=== PATIENT | female | born 1960 | race Caucasian/White ===

== ENCOUNTER 2023-09-17 22:32 | Emergency (ER) | payer MEDICARE, MEDICAID ==
[~2023-09-17] VITALS: Ht 149.9 cm; Wt 70.0 kg
[2023-09-17 23:02] VITALS: BP 120/69; O2SAT 97
[2023-09-18 03:59] VITALS: PULSE 68; RESP 18
== END 2023-09-18 04:00 | disposition home or self-care (01) ==
LOC: ER 22:32
DX: M79.644 Pain in right finger(s) (principal)
CPT/HCPCS: 99281

== ENCOUNTER 2024-10-13 18:40 | Inpatient (IN) | payer MEDICARE, MEDICAID ==
[~2024-10-13] VITALS: Ht 157.5 cm; Wt 62.8 kg
[2024-10-13 19:32] LABS: MEAN PLATELET VOLUME 8.5 FL (7.4-10.4); RED CELL DISTRIBUTION WIDTH 14.9 % (11.5-14.5)
[2024-10-13 20:41] LABS: CREATININE 1.24 MG/DL (0.40-0.90); TOTAL CARBON DIOXIDE 24.5 MMOL/L (24-32); eCRCL 36 ML/MIN; eGFR 43 ML/MIN
[2024-10-13 21:39] LABS: UA COLLECTION TYPE CLN CATCH MIDSTREAM
[2024-10-13 21:52] LABS: URINE HCG NEGATIVE (NEG)
[2024-10-13 21:59] LABS: SQUAMOUS EPITHELIAL CELL,UR FEW /LPF (FEW)
--- NOTE | 2024-10-13 22:09 | Physician Documentation ---
History of Present Illness ~ Chief Complaint: Urinary Symptoms Stated Complaint: UTI Time Seen by MD: 21:32 Primary Medical Doctor: DR. ANNA HPI 64-year-old female presents to the ED complaint of burning urination and urinary frequency for the last 2-3 days. Patient is known psychiatric illness along with a type 2 diabetes. This is a poor historian who does not complain of any pain.. However she is acutely hypertensive at this time well over 190 systolic .denies any chest pain or shortness of breath Day of Onset: Oct 13, 2024 Medication Reconciliation Allergies: Coded Allergies: No Known Allergies (Unverified , 10/13/24) Review of Systems All Other Systems at this time: Reviewed and Negative ROS As stated above in the HPI, otherwise all systems are reviewed and negative. Physical Exam Vital Signs: Temperature: 98.7, Source: Temporal, Heart Rate: 104, Respiratory Rate: 16, BP: 187/111, Pulse Oximetry: 98, Weight: 62.800 Oxygen Flow Rate: 0 Physical Exam General: Alert, no apparent distress. Respiratory: Lungs clear, no respiratory distress. Cardiovascular: Regular rate and rhythm, no murmurs. Gastrointestinal: Soft, nontender, nondistended. Bowels sounds present. Neurologic: Oriented x4. Psychiatric: odd affect Skin: Normal color, warm and dry. No edema, no ecchymosis. Progress Results/Orders Results/Orders Orders - DUSTY ENRIQUEZ TOBACCO SAMPLER Ct Abdomen Pelvis (10/13/24 22:30) Page Hospitalist (10/13/24 ) Completed Orders - DUSTY ENRIQUEZ TOBACCO SAMPLER Hydralazine Inj. (Apresoline Inj.) (10/13/24 22:20) Ct Abdomen Pelvis (10/13/24 22:30) Medications Received in ER Medications (Trade) Dose Ordered Sig/Murali Route PRN Reason Start Time Stop Time Status Last Admin Dose Admin (Apresoline inj.) 10 mg ONCE ONCE IV 10/13/24 22:20 10/13/24 22:21 DC 10/13/24 23:06 10 MG Vital Signs 10/13/24 10/13/24 10/13/24 18:58 21:38 23:06 Temp 98.7 Pulse 104 100 Resp 16 B/P (MAP) 187/111 Pulse Ox 98 O2 Flow Rate 0 Laboratory Tests Test 10/13/24 19:05 10/13/24 19:24 Urine Specimen Description Cln catch midstream Urine Color Red Urine Clarity Bloody Urine pH Urine Specific [place] Urine Protein Urine Glucose (UA) Urine Ketones Urine Occult Blood Urine Nitrite Urine Bilirubin Urine Urobilinogen Urine Leukocyte Esterase Urine RBC Tntc Urine WBC 10-20 H Urine Squamous Epithelial Cells Few Urine Bacteria None seen Urine Culture Indicated Indicated Volume Urine Centrifuged 10 ml Urine HCG, Qualitative Negative Urine Comment See note White Blood Count 17.2 H Red Blood Count 4.63 Hemoglobin 13.5 Hematocrit 39.9 Mean Corpuscular Volume 86.0 Mean Corpuscular Hemoglobin 29.2 Mean Corpuscular Hemoglobin Concent 33.9 Red Cell Distribution Width 14.9 H Platelet Count 245 Mean Platelet Volume 8.5 Neutrophils (%) (Auto) 82.5 H Lymphocytes (%) (Auto) 12.4 L Monocytes (%) (Auto) 4.3 Eosinophils (%) (Auto) 0.5 Basophils (%) (Auto) 0.3 Neutrophils # (Auto) 14.2 H Lymphocytes # (Auto) 2.1 Monocytes # (Auto) 0.7 Eosinophils # (Auto) 0.1 Basophils # (Auto) 0.1 CBC Comment Sodium Level 139 Potassium Level 3.7 Chloride Level 102 Carbon Dioxide Level 24.5 Anion Gap 13 Blood Urea Nitrogen 23 H Creatinine 1.24 H Estimated GFR/1.73 m2 43 BUN/Creatinine Ratio 18.5 Glucose Level 287 H Calcium Level 9.0 Total Bilirubin 0.4 Aspartate Amino Transf (AST/SGOT) 26 Alanine Aminotransferase (ALT/SGPT) 34 Alkaline Phosphatase 98 Total Protein 8.9 H Albumin 4.1 Globulin 4.8 H Albumin/Globulin Ratio 0.9 L Lipase 47 Chemistry Comments Microbiology Date/Time Source Procedure Growth Status 10/13/24 22:07 Urine Clean Catch Midstream Urine Culture - Preliminary Culture received. Resulted Medical Decision Making Findings This patient is acutely hypertensive which I am treating with hydralazine in addition she has hematuria with no current supportive evidence of UTI other than hematuria she has not odd affect and is poor historian. Currently going to scan her abdomen to rule out kidney stones. Unexplained hematuria or her acute hypertension at this time. Going to request hospital admission for further evaluation Urinary Diff Dx:Considerations: Include: AAA, , Aortic dissection, Appendicitis, Bowel obstruction, Cholelithiasis, Choleangitis, DJD, Ectopic , Hepatitis, HNP, Impaction, Intrauterine , Musculoskeletal pain, Ovarian torsion, Pancreatitis, PID, Post-Op complication, Pyelonephritis, Renal failure, Strain, Urinary Obstruction, Urolithiasis, Urinary retention, UT I, Vaginitis, Other Departure Disposition: ADMITTED INPATIENT Impression: Primary Impression: Acute urinary tract infection Additional Impressions: Hematuria Hypertension Condition: Stable Referrals: NO PRIMARY CARE PROVIDER (PCP) Signature Scribe Signature: y Attestation: Scribed for Dusty Enriquez Industrial X Ray Operator by Dusty Mike NP . 10/13/24 23:11 DUSTY ENRIQUEZ NP Oct 13, 2024 22:09
[2024-10-13] MEDS ORDERED: HYDROcodone/acetaminophen 5mg/325mg tablet PO PRN (22:55)
[2024-10-13] MEDS ORDERED: potassium Cl 20 mEq SR tablet PO PRN (22:55)
[2024-10-13] MEDS ORDERED: magnesium sulf-water 4G/100mL 100 ML IV PRN (22:55)
[2024-10-13] MEDS ORDERED: magnesium hydroxide 30ml (MOM) UD suspension PO PRN (22:55)
[2024-10-13] MEDS ORDERED: potassium Cl 40MEQ/1/2NS 520ml 520 ML IV PRN (22:55)
[2024-10-13] MEDS ORDERED: magnesium sulf-water 2g/50mL 50 ML IV PRN (22:55)
[2024-10-13] MEDS ORDERED: magnesium Cl slow-release 64mg tablet PO PRN (22:55)
[2024-10-13] MEDS ORDERED: HYDROcodone/acetaminophen 10/325mg tab PO PRN (22:55)
[2024-10-13] MEDS ORDERED: mag hydrox/Alum hydrox/simeth 30ml oral suspension PO PRN (22:55)
[2024-10-13] MEDS: hydrALAZINE 20mg/ml inj. IV ONE (23:06)
--- NOTE | 2024-10-13 23:26 | HISTORY AND PHYSICAL-Residence ---
History & Physical Providers to CC Resident Creating Document: ANNABELLE LINTON, CASSIDY ~ History of Present Illness Primary Medical Doctor: DR. ANNA Reason for Admit\Complaint: UTI History of Present Illness This is a 64-year-old female patient with past medical history of hypertension, dyslipidemia, type 2 diabetes, lung cancer, colon cancer, unknown psychiatric condition who came to the ER with complaints of blood in urine and burning micturition. Patient is a poor historian. She has 2 caregivers Ingrid and Patrick who will be with the patient tomorrow bedside for a detailed history. The patient explained that she noticed blood in the urine associated with burning micturition with increased frequency and urgency since today morning. Not associated with abdominal pain, fever, nausea, vomiting. Allergies: Coded Allergies: No Known Allergies (Unverified , 10/13/24) Past Medical History Past Medical History Hypertension Dyslipidemia Type 2 diabetes Lung cancer Colon cancer Past Surgical History Surgical History Comment hysterectomy in 20s, reason unknown Past Social History Smoking: Non-Smoker Alcohol Use: None Drug Use: None Lives with: Other (Caregivers Ingrid and Patrick) Lives In: Home Occupation: retired ROS All Other Systems: Reviewed and Negative Constitutional: Reports: no symptoms reported Eyes: Reports: no symptoms reported ENT: Reports: no symptoms reported Respiratory: Reports: no symptoms reported Cardiovascular: Reports: no symptoms reported Gastrointestinal: Reports: no symptoms reported Genitourinary: Reports: no symptoms reported, burning, dysuria, hematuria, urgency Female Genitalia: Reports: no reported symptoms Neurological: Reports: no symptoms reported Musculoskeletal: Reports: no symptoms reported Integumentary: Reports: no symptoms reported Allergic/Immunologic: Reports: no symptoms reported Hematologic/Lymphatic: Reports: no symptoms reported Endocrine: Reports: no symptoms reported Psychiatric: Reports: no symptoms reported Unable to obtain: dementia Exam Vitals: Vital Signs Date Time Temp Pulse Resp B/P (MAP) Pulse Ox O2 Delivery O2 Flow Rate FiO2 10/13/24 23:06 100 10/13/24 21:38 10/13/24 18:58 98.7 16 98 0 General: General: Well alert, well oriented, not agitated, not in acute distress, well cooperated during the physical. Patient has an unknown psychiatric condition and is a poor historian. HEENT: Conjunctive are pink, sclerae clear, no icterus, pupil is equal in both sides, reactive to light, no ear discharge, no pharyngeal erythema or an edema. Neck: Supple, no JVD, no lymphadenopathy and thyromegaly. Chest: Equal air entry on both lungs, no added sounds, no wheeze. Cardiovascular: S1-S2 regular sinus rhythm and, regular rate, no gallops, no rubs, no murmurs Abdomen: No visible peristalsis, Bowel sounds present on auscultation, soft, nontender, no guarding, no rigidity Extremities: No obvious deformities, no pitting edema bilaterally, capillary refill intact, peripheral pulsations are intact on both sides Central Nervous System: No focal neurological deficits, no motor or sensory weakness in all 4 extremities, could move all 4 extremities, 2+ deep tendon reflexes, negative Babinski. Musculoskeletal: No joint swelling, deformities, inflammations, and no scoliosis and back tenderness Skin: Warm and dry. Diagnostic Data Last Recorded Lab Results: 10/13/24192310/13/241923 Counseling Services Smoking & Tobacco Cessation: N/A Advance Care Planning Advanced Care plannin - 30 Minutes (Full code) Additional Plan Assessment: This is a 64-year-old female patient with past medical history of hypertension, dyslipidemia, type 2 diabetes, lung cancer, colon cancer, unknown psychiatric condition who came to the ER with complaints of blood in urine and burning micturition. Patient is a poor historian. Plan: UTI Patient meets SIRS criteria (heart rate> 90, WBC> 68441, suspected source of infection) Ordered lactic acid, ESR, CRP, procalcitonin WBC 17.2 Urinalysis shows few bacteria, 10-12 WBC and RBCs Abdominal and pelvis CT:1. Moderate bilateral hydroureteronephrosis without evidence of obstructing urinary stone. Inflammatory appearance of the urinary bladder, with posttreatment appearance of the diminutive uterus or vaginal cuff. Prominent inflammatory stranding within the pelvis and small ascites. Circumferential rectal wall thickening. Constellation of findings suggests inflammation or malignancy, likely with previous treatment. No comparison exams are available for review, and relevant history is unknown. Further clinical workup is recommended. 2. Uncomplicated sigmoid colon anastomotic sutures. 3. Interstitial edema in the lung bases as well as a peripheral left lower lobe consolidation which may be infectious/inflammatory, or suspicious for metastasis given the pelvic findings. Awaited urine culture Plan: Hydration with 50 mL/hour IV fluids Started antibiotic ceftriaxone 1 g IV daily, and probiotic. Hypertension Vitals: Systolic blood pressure on arrival 180s Administered hydralazine 10 mg in the ER , she still continues to have high blood pressure on the floor around 180s Creatinine 1.24, BUN 23, EGFR 43 Baseline creatinine unknown. Order lipid panel, EKG and echo. Plan: We will continue her home medication metoprolol 25 mg p.o. b.i.d., labetalol 10 mg IV p.r.n. for blood pressure greater than 160/100 Medication reconciliation to be done Type 2 diabetes Ordered hemoglobin A1c On mild hyper/hypoglycemia protocol Unknown psychiatric condition To Continue home medication olanzapine 7.5 mg p.o. daily, fluoxetine 20 mg p.o. daily after medicine reconciliation Code status: Full code DVT prophylaxis: SCDs Analgesia/sedation: Morphine/Belt p.r.n. Line/tube: PIV GI prophylaxis: None Nutrition: 75 g carb controlled diet PT: Ordered. Prognosis: Guarded Disposition: Admit to [facility] with telemetry, detailed history were taken from her caregivers tomorrow morning, medicine reconciliation to be done Annabelle Linton MD PGY1, Internal Medicine [facility] Attending Physician Attestation Evaluation via HIPAA compliant A/V device. I discussed the case with the resident and I agree with the resident's documentation. 64-year-old woman with a history of hypertension, dyslipidemia, type 2 diabetes, lung cancer, colon cancer, unknown psychiatric condition now admitted with a urinary tract infection bilateral hydroureteronephrosis. The treatment plan includes ceftriaxone antimicrobial therapy and a Urology evaluation. Time spent 50 minutes. Date of Service: Oct 13, 2024 Billing Provider: MISHEL CHICAS MD, SHIVANI, RES Oct 13, 2024 23:26 MISHEL CHICAS MD Oct 14, 2024 02:59
--- NOTE | 2024-10-13 23:26 | RADIOLOGY REPORT ---
Exam: CT CT ABDOMEN PELVIS History: hematuria COMPARISON: None Technique: Multidetector spiral CT of the abdomen and pelvis was performed from lung bases to pubic s ymphysis. Intravenous contrast was administered during this examination. Portal venous imaging was o btained. Axial, coronal and sagittal multiplanar reformats were performed by the technologist on a [employer] workstation. Radiation Dose : 1. Abdomen/Pelvis: CTDIvol 13 mGy, DLP 6401 mGy*cm. Findings: Lower Chest: Interlobular septal thickening in the lung bases. Pleural-based 3.2 cm consolidation in the left lower lobe. Normal heart size with coronary atherosclerosis. Suboptimal contrast bolus timing and/or lack of contrast limits assessment. Liver: Unremarkable. Gallbladder and Biliary Tree: Unremarkable. Pancreas: Unremarkable. Spleen: Scattered calcifications. Adrenal Glands: Unremarkable Kidneys: Moderate bilateral hydroureteronephrosis. No evidence of collecting system or ureteral sto ne. Mild bilateral renal atrophy and perinephric stranding. Bladder: Circumferential wall thickening. Pericystic stranding. Pelvic Organs: Metallic densities within the diminutive uterus versus vaginal cuff may represent fidu cials. Nonvisualized ovaries. Bowel: The distal esophagus, stomach, duodenum and small bowel are unremarkable. Nonvisualized appe ndix. Moderate proximal colonic stool burden. Uncomplicated sigmoid colon anastomotic suture. Circum ferential rectal wall thickening with surrounding stranding. Vasculature: Diffuse atherosclerosis. Lymphadenopathy: No obvious lymphadenopathy. Peritoneum: Small volume pelvic ascites admixed with stranding described above. No free air or obvio us fluid collection. Abdominal Wall: Ventral postsurgical change. Periumbilical subcutaneous stranding likely related to medication injection. Musculoskeletal: No acute abnormality. Mild degenerative changes. IMPRESSION: 1. Moderate bilateral hydroureteronephrosis without evidence of obstructing urinary stone. Inflammato ry appearance of the urinary bladder, with posttreatment appearance of the diminutive uterus or vagi nal cuff. Prominent inflammatory stranding within the pelvis and small ascites. Circumferential rect al wall thickening. Constellation of findings suggests inflammation or malignancy, likely with previo us treatment. No comparison exams are available for review, and relevant history is unknown. Further clinical workup is recommended. 2. Uncomplicated sigmoid colon anastomotic sutures. 3. Interstitial edema in the lung bases as well as a peripheral left lower lobe consolidation which m ay be infectious/inflammatory, or suspicious for metastasis given the pelvic findings. Radiation optimization: All CT scans at this facility use at least one of these dose optimization shanda hniques: automated exposure control mA and/or kV adjustment per patient size (includes targeted exam s where dose is matched to clinical indication) or iterative reconstruction.
[2024-10-14] VITALS (13 sets, daily range): BP systolic 113–227; BP diastolic 64–140; PULSE 80–115; RESP 14–18; TEMP 97.3–98.5; O2SAT 96–99
[2024-10-14] MEDS ORDERED: glucagon, human recombinant 1mg kit SUBCUT PRN (00:25)
[2024-10-14] MEDS ORDERED: DEXTROSE 15 GM of carb/4 tabs (each vial/BOTTLE has 4 tablets) PO PRN ×2 (00:25)
[2024-10-14] MEDS ORDERED: dextrose 50%-water 50ml dispensing syringe IV PRN ×2 (00:25)
[2024-10-14] MEDS: labetalol 20mg/4ml (5mg/ml) syringe IV ONE (02:04)
[2024-10-14] MEDS: normal saline 1000ml 1,000 ML IV SCH (02:26)
[2024-10-14] MEDS: CefTRIAXone/D5W-Rocephin 1gm 50 ML IV SCH (02:29)
[2024-10-14 06:23] LABS: MEAN PLATELET VOLUME 9.1 FL (7.4-10.4); RED CELL DISTRIBUTION WIDTH 14.8 % (11.5-14.5)
[2024-10-14 07:02] LABS: CREATININE 1.01 MG/DL (0.40-0.90); TOTAL CARBON DIOXIDE 22.1 MMOL/L (24-32); eCRCL 44 ML/MIN; eGFR 55 ML/MIN
--- NOTE | 2024-10-14 07:20 | ELECTROCARDIOGRAPH REPORT ---
[facility] Test Date: 2024-10-14 Test Time: 07:18:36 Pat Name: CHICO THOMAS Department: ORTHO 4S Room: ORTHO [facility] B Gender: F [employer] Engineer: DEWAYNE : 1960 Requested By: ANNABELLE HUFFMAN Order Number: [id number] Reading MD: Dr. ARETHA Fritz Measurements Intervals [place] Rate: 92 P: 72 WY: 151 QRS: 82 QRSD: 89 T: 245 QT: 442 QTc: 547 Interpretive Statements Sinus rhythm Borderline right axis deviation Probable LVH with secondary repol abnrm Repol abnrm, global ischemia, diffuse leads Prolonged QT interval Electronically Signed On 10-14-2024 18:40:[address] ARETHA Fritz Please click the below link to view image of tracing.
[2024-10-14] MEDS: lactobacillus rhamnosus 10,000 MMU CELLS/CAPSULE PO SCH (07:59)
[2024-10-14] MEDS: K and/or MAG REPLACEMENT MC SCH (08:00)
[2024-10-14] MEDS: docusate sod 100mg capsule PO SCH (08:00)
[2024-10-14] MEDS: INSULIN LISPRO 100 UNIT/ML INSULN.PEN MULTI-DOSE SQ SCH ×3 (08:03→22:07)
[2024-10-14] MEDS: potassium Cl 20 mEq SR tablet PO PRN (10:12)
--- NOTE | 2024-10-14 10:44 | PROGRESS NOTE- Residence ---
Progress Note - Resident Providers to CC Resident Creating Document: FLORENCIA PINTO RES ~ Antibiotic Timeout Antibiotic Ordered?: Yes Subjective The patient is poor historian, unable to officially communicate at the moment. The patient's caregiver Patrick ([phone]) and Angela ([phone]) are residing together with the patient and taking care since last 14 months. As per Patrick over the phone, they just have knowledge about that the patient has lung cancer and colon cancer that was treated with surgery and adjuvant systemic chemotherapy without receiving any radiation therapy for which they have been following oncologist in person at [facility] every six months. They have no idea when those cancer and is treatment happened, what kind of psychiatric conditions she has, and any other urological history is including kidney stones and other risk factor exposure for urological malignancy before they started taking care of the patient. Patient is having long-acting insulin 30 units twice daily and sliding scale after meal at home. Objective Vital Signs Date Time Temp Pulse Resp B/P (MAP) Pulse Ox O2 Delivery O2 Flow Rate FiO2 10/14/24 07:59 87 10/14/24 06:56 97.6 14 118/69 (85) 97 Room Air 10/14/24 01:00 0.0 Result Diagram: 10/14/24 0516 10/14/24 0516 Patient was seen at the bedside this morning. Vitals were stable at the moment with temp 97.6 F, CT 87/minute, RR 14/minute, BP 118/69 mm Hg, pulse oximetry 97% on room air. On exam, General: Well alert, well oriented, not confused, not agitated, not in acute distress, well cooperated during the physical. HEENT: Conjunctive are pink, sclerae clear, no icterus, pupil is equal in both sides, reactive to light, no ear discharge, no pharyngeal erythema or an edema, mouth and lips are dry. Neck: Supple, no JVD, no lymphadenopathy and thyromegaly. Lungs:Equal air entry on both lungs, no additional sounds Heart: S1-S2 regular sinus rhythm and, regular rate, no gallops, no rubs, no murmurs Abdomen: Visible midline surgical scar heal well with a primary union, No visible peristalsis, Bowel sounds present on auscultation, soft, nontender, no guarding, no rigidity, no bilateral CVA tenderness Extremities: No obvious deformities, no pitting edema bilaterally, capillary refill intact, able to wiggle toes both sides, peripheral pulsations are intact on both sides FOWL BLOOD TESTER: No focal neurological deficits, no motor and sensory weakness in all 4 extremities, could move all 4 extremities Musculoskeletal: No joint swelling, deformities, inflammations, and no scoliosis and back tenderness Skin: No active skin lesions and rashes Assessment Assessment A 64-year-old female patient with past medical history of hypertension, dyslipidemia, type 2 diabetes, lung cancer, colon cancer s/p sigmoid colon anastomosis, s/p hysterectomy, and unknown psychiatric condition who came to the ER with complaints of blood in urine and burning micturition, and was admitted to the hospital for the non-complicated LUTIs with non-obstructive bilateral moderate hydronephrosis, and possible community acquired pneumonia. Plan Plan hypertension, dyslipidemia, type 2 diabetes, lung cancer, colon cancer s/p sigmoid colon anastomosis, s/p hysterectomy, and unknown psychiatric condition who came to the ER with complaints of blood in urine and burning micturition, and was admitted to the hospital for the non-complicated LUTIs with non- obstructive bilateral moderate hydronephrosis, and possible community acquired pneumonia. # Sepsis on POA- from the below # Non-complicated LUTI/ Gross Hematuria, covering with Broad spectrum ABx # Non-obstructive bilateral moderate hydronephrosis # Neutrophilic leukocytosis-normalized 10/14/2024:-trending down neutrophilic leukocytosis today -UA showed sterile pyuria and other tests indicating UTI including leukocyte esterase and nitrites were not performed because of the mulugeta hematuria, pending urine culture and sensitivity -reordered urine analysis again with urine casts/microscopic -continue broad-spectrum IV antibiotic 1 g daily and added IV Flagyl 500 mg b.i.d. -increase the IV NS rate to 75 mL/hr in the setting of mulugeta hematuria -will obtain more info about her previous malignant hx for the possible recurrence or mets to the CT pelvis finding from [facility] including last 2-3 outpatient visits, recent/latest scans, labs and urinary tests. -urine exfoliative cytology for the possible malignancy in the presence of Gross/ macroscopic hematuria -pt is a non-smoker with unknown previous dye/ chemical occupation exposure 10/13/2024:-normal lactic acid and procalcitonin -CT AP w/ IV Contrast IMPRESSION: 1. Moderate bilateral hydroureteronephrosis without evidence of obstructing urinary stone. Inflammatory appearance of the urinary bladder, with posttreatment appearance of the diminutive uterus or vaginal cuff. Prominent inflammatory stranding within the pelvis and small ascites. Circumferential rectal wall thickening. Constellation of findings suggests inflammation or malignancy, likely with previous treatment. No comparison exams are available for review, and relevant history is unknown. Further clinical workup is recommended. 2. Uncomplicated sigmoid colon anastomotic sutures. 3. Interstitial edema in the lung bases as well as a peripheral left lower lobe consolidation which may be infectious/inflammatory, or suspicious for metastasis given the pelvic findings. # Hypertension # poorly controlled T2DM, HGB A1c 8.4 10/14/2024: Blood pressure is better in shape today -continue metoprolol 25 mg b.i.d., IV labetalol 10 mg PRN -continue monitoring BP and blood glucose -her HGB A1c 8.4 -ordered lipid panel for the possible metabolic syndrome and calculation of ASCVD risk -pending med rec -continue hypo/hyperglycemic protocol with upgraded medium dose sliding scale regimen for better blood glucose control -started SQ glargine 20 units twice daily for better blood glucose control -goal targeted blood glucose shall be ranging between 140-180s during hospitalization. 10/13/2024: Vitals- Systolic blood pressure on arrival 180s Administered hydralazine 10 mg in the ER , she still continues to have high blood pressure on the floor around 180s Order lipid panel, EKG and echo. Plan: We will continue her home medication metoprolol 25 mg p.o. b.i.d., labetalol 10 mg IV p.r.n. for blood pressure greater than 160/100 Medication reconciliation to be done # electrolyte imbalance-mild hypokalemia # elevated creatinine level # apparent hypocalcemia -no baseline creatinine and EGFR levels to be compared -continue daily monitoring renal function tests and rate of declining GFR -replace potassium as needed as per protocol -corrected calcium showed 8.7 with a normal # Unknown Past Psych Hx -Pending med rec to be reviewed including Olanzapine and Fluoxetine Code status: Full code DVT prophylaxis: SCDs and sc heparin 5000 units b.i.d. Analgesia/sedation: Morphine as needed Line/tube: PIV GI prophylaxis: None Nutrition: 75 g carb controlled diet PT: Ordered. Prognosis: Guarded Disposition: Continue medical management including IV antibiotics, monitor urine output, pending labs, to track previous medical records from [facility] [place] including investigation, blood pressure control and PT eval and DC plan. Resident MD attestation: Patient was seen, examined and discussed with attending MD, Dr. Deb PINTO MD Internal Medicine Resident, PGY3 [facility] Date of Service: Oct 14, 2024 Billing Provider: SADIE FRANKS MD Common Visit Codes: [id number] INP/OBS CARE(HIGH) FLORENCIA PINTO RES Oct 14, 2024 10:44 SADIE FRANKS MD Oct 14, 2024 16:51
--- NOTE | 2024-10-14 11:00 | RADIOLOGY REPORT ---
CHEST RADIOGRAPH Indication: Cough Technique: Single frontal view of the chest was obtained Comparison: None FINDINGS: Lines and Tubes: None Lungs: No focal consolidation. Pleura: No effusion. No pneumothorax. Cardiomediastinal contours: Unremarkable Bones: No acute osseous abnormality. IMPRESSION: No acute cardiopulmonary disease.
[2024-10-14] MEDS ORDERED: ERGO500056 PO (12:44)
[2024-10-14] MEDS ORDERED: MULT-1085 PO (12:44)
[2024-10-14] MEDS ORDERED: INSU100V49 SQ (12:44)
[2024-10-14] MEDS ORDERED: MEGE40TA5 PO (12:44)
[2024-10-14] MEDS ORDERED: METO25TA6 PO ×2 (12:44→12:52)
[2024-10-14] MEDS ORDERED: OLAN7.5T50 PO (12:44)
[2024-10-14] MEDS ORDERED: DAPA10TA PO (12:44)
[2024-10-14] MEDS ORDERED: FLUO-167 PO (12:44)
[2024-10-14] MEDS ORDERED: INSU100I31 SQ (12:44)
[2024-10-14] MEDS ORDERED: SIMV-42 PO (12:44)
[2024-10-14] MEDS ORDERED: TAMO20TA4 PO (12:44)
[2024-10-14] MEDS: metroNIDAZOLE-Flagyl 500mg/NS 100 ML IV SCH (13:25)
[2024-10-14] MEDS ORDERED: INSULIN LISPRO 100 UNIT/ML INSULN.PEN MULTI-DOSE SQ SCH (17:00)
[2024-10-14] MEDS: ergocalciferol (vit D2) capsule 50,000 UNITS (1,250mcg) CAPSULE PO SCH (18:20)
[2024-10-14 19:55] LABS: UA COLLECTION TYPE URINAL
[2024-10-14] MEDS ORDERED: non-formulary drug (Metoprolol Tartrate 1 TAB) PO SCH (20:00)
[2024-10-14 20:01] LABS: SQUAMOUS EPITHELIAL CELL,UR FEW /LPF (FEW)
[2024-10-14] MEDS: ondansetron/PF 4mg/2ml inj IV PRN (21:15)
[2024-10-14] MEDS: heparin, porcine 5000 units/ml vial SQ SCH (21:55)
[2024-10-14] MEDS: insulin glargine (Lantus) pen - multi-dose SQ SCH (21:57)
[2024-10-15] MEDS: labetalol 20mg/4ml (5mg/ml) syringe IV PRN (00:12)
[2024-10-15] MEDS: INSULIN LISPRO 100 UNIT/ML INSULN.PEN MULTI-DOSE SQ ONE (00:26)
[2024-10-15 01:13] VITALS: BP 113/65; PULSE 88; RESP 14; TEMP 99.2; O2SAT 92
[2024-10-15 05:00] VITALS: BP 105/66; PULSE 80; RESP 15; TEMP 98.2; O2SAT 95
[2024-10-15 05:34] LABS: MEAN PLATELET VOLUME 8.7 FL (7.4-10.4); RED CELL DISTRIBUTION WIDTH 15.0 % (11.5-14.5)
[2024-10-15 06:09] LABS: CHOL/HDL RATIO 4.8 (0.00-4.99); CREATININE 1.26 MG/DL (0.40-0.90); LDL CHOLESTEROL 123 MG/DL (50-100); PRO BRAIN NATRIURETIC PEPTIDE 9254 PG/ML (0-125); TOTAL CARBON DIOXIDE 21.5 MMOL/L (24-32); eCRCL 35 ML/MIN; eGFR 43 ML/MIN
[2024-10-15] MEDS: TAMOXIFEN 20 MG PO SCH (08:00)
[2024-10-15 08:19] LABS: OSMOLALITY 299 MOSM/K (280-300)
[2024-10-15] MEDS: multivitamins, therapeutics tablet PO SCH (08:25)
[2024-10-15] MEDS: EMPAGLIFLOZIN 25 MG TABLET PO SCH (08:25)
[2024-10-15] MEDS ORDERED: INSULIN LISPRO 100 UNIT/ML INSULN.PEN MULTI-DOSE SQ SCH (09:00)
[2024-10-15 10:00] VITALS: BP 108/60; PULSE 76; RESP 15; TEMP 97.2; O2SAT 97
[2024-10-15] MEDS ORDERED: AMOX-115 PO (12:30)
[2024-10-15] MEDS ORDERED: LACT1CAP26 PO (12:30)
--- NOTE | 2024-10-15 15:29 | DISCHARGE SUMMARY-Residence ---
Discharge Summary Providers to CC Resident Creating Document: AGUILA FIERRO, RES ~ Discharge Summary Admission Diagnosis: UTI Hospital Course DATE OF ADMISSION: 10/13/2024 DATE OF DISCHARGE: 10/15/2024 Discharge Diagnosis\Comment: # Sepsis on POA- from the below # Non-complicated LUTI/ Gross Hematuria, covering with Broad spectrum ABx # Non-obstructive bilateral moderate hydronephrosis # Neutrophilic leukocytosis-normalized # Hypertension # poorly controlled T2DM, HGB A1c 8.4 # electrolyte imbalance- mild hypokalemia # acute kidney injury, ATN # apparent hypocalcemia # Unknown Past Psych Hx Operations\Procedures: None Consultants: None Complications: None Condition on DC: Stable New Medications: Amox Tr/Potassium Clavulanate (Augmentin 500-125 Tablet) 1 Each Tablet 1 TAB PO Q12H for 7 Days, #14 TAB Lactobacillus Rhamnosus (Culturelle) 10 Billion Cell Capsule 1 CAP PO DAILY for 30 Days, #30 CAP 0 Refills Continued Medications: Dapagliflozin Propanediol (Farxiga) 10 Mg Tablet 1 TAB PO QAM Ergocalciferol (Vitamin D2) (Vitamin D2) 1,250 Mcg (06615 Unit) Capsule 1 CAP PO Q7D Fluoxetine HCl (Fluoxetine HCl) 20 Mg Capsule 1 CAP PO DAILY Insulin Glargine,Hum.rec.anlog (Basaglar Kwikpen U-100) 100 Unit/Ml (3 Ml) Insuln.pen 32 UNITS SQ BID Insulin Lispro (Insulin Lispro) 100 Unit/Ml Vial UNITS SQ Metoprolol Tartrate (Metoprolol Tartrate) 25 Mg Tablet 1 TAB PO Q12H, TAB 0 Refills Multivitamin (Multi Vitamin Daily) 1 Each Tablet 1 TAB PO DAILY, TAB 0 Refills Olanzapine (Olanzapine) 7.5 Mg Tablet 1 TAB PO HS Simvastatin* (Zocor*) 20 Mg Tablet 1 TAB PO HS Tamoxifen Citrate (Tamoxifen Citrate) 20 Mg Tablet 1 TAB PO DAILY, TAB 0 Refills Discharge Summary: HPI as per admitting physician: This is a 64-year-old female patient with past medical history of hypertension, dyslipidemia, type 2 diabetes, lung cancer, colon cancer, unknown psychiatric condition who came to the ER with complaints of blood in urine and burning micturition. Patient is a poor historian. She has 2 caregivers Ingrid and Patrick who will be with the patient tomorrow bedside for a detailed history. The patient explained that she noticed blood in the urine associated with burning micturition with increased frequency and urgency s ricki today morning. Not associated with abdominal pain, fever, nausea, vomiting. Hospital course: The patient is a 64-year-old female with a past medical history significant for hypertension, dyslipidemia, type 2 diabetes mellitus, prior lung and colon cancers, endometrial carcinoma status post hysterectomy and sigmoid colon anastomosis, as well as an unknown psychiatric condition. She presented to the emergency department with complaints of mulugeta hematuria, dysuria, urinary urgency, and frequency. She denied fever, abdominal pain, nausea, or vomiting. On arrival, her systolic blood pressure was in the 180s, and she was found to be hyperglycemic with an HbA1c of 8.4%. She is a poor historian, and further collateral history was planned with her caregivers. Initial evaluation revealed gross hematuria with sterile pyuria on urinalysis. Due to the presence of blood, leukocyte esterase and nitrite testing were not reliable, and urine culture and cytology were sent. A CT abdomen/pelvis with IV contrast demonstrated moderate bilateral hydroureteronephrosis without obstructing calculi, inflammatory changes of the bladder, small volume ascites, circumferential rectal wall thickening, and post-surgical changes consistent with prior hysterectomy and sigmoid anastomosis. The findings raised concern for possible malignancy or post-treatment inflammatory changes. Additional imaging also revealed interstitial edema with peripheral left lower lobe consolidation, raising the possibility of community-acquired pneumonia. She was started empirically on broad-spectrum intravenous antibiotics (initially ceftriaxone, later transitioned to ceftriaxone plus IV metronidazole for broader intra-abdominal coverage) in the setting of sepsis on presentation, with neut rophilic leukocytosis that trended down by hospital day 2. IV fluids were administered with cautious hydration, and urine output was closely monitored. Electrolyte disturbances, including mild hypokalemia and apparent hypocalcemia, were corrected per protocol. Her renal function showed elevated creatinine without known baseline, and she was monitored for possible acute kidney injury on chronic kidney disease. Her blood pressure remained elevated initially, requiring IV hydralazine and labetalol, in addition to continuation of her home metoprolol. Over the course of hospitalization, blood pressure gradually improved. Her diabetes was managed with basal insulin (glargine 20 units BID) and medium-dose sliding scale coverage, with a goal glucose target of 298453 mg/dL. Lipid panel and echocardiogram were ordered as part of her cardiovascular risk evaluation. Given her history of multiple malignancies and the new pelvic and rectal wall findings, further outpatient oncologic evaluation was deemed necessary. Records from [facility] were requested to clarify prior staging and recent treatment history, as she was previously followed there for endometrial carcinoma with known pulmonary metastases. Her leukocytosis resolved, hemodynamics stabilized, and hematuria improved with supportive management and antibiotics. She was transitioned to oral Augmentin at the time of discharge. Plans were made for close outpatient follow-up with her primary oncologist and urology at [facility] for further workup of suspected malignancy, including evaluation of pelvic findings, bladder inflammation, and recurrent hematuria. She was discharged in stable condition with arrangements for her caregivers to accompany her to outpatient visits, with home medications reconciled and resumed as appropriate. Patient did not experience further complications throughout the entire hospital stay. Patient was seen and examined on the day of discharge. All labs, diagnostic workups, discharge plan discussed with patient in details during visit before discharge. All questions and concerns answered to the best of my professional knowledge. Imaging: CT abdomen/pelvis: IMPRESSION: 1. Moderate bilateral hydroureteronephrosis without evidence of obstructing urinary stone. Inflammatory appearance of the urinary bladder, with posttreatment appearance of the diminutive uterus or vaginal cuff. Prominent inflammatory stranding within the pelvis and small ascites. Circumferential rectal wall thickening. Constellation of findings suggests inflammation or malignancy, likely with previous treatment. No comparison exams are available for review, and relevant history is unknown. Further clinical workup is recommended. 2. Uncomplicated sigmoid colon anastomotic sutures. 3. Interstitial edema in the lung bases as well as a peripheral left lower lobe consolidation which may be infectious/inflammatory, or suspicious for metastasis given the pelvic findings. Chest x-ray: No acute cardiopulmonary process Physical examination today: General: Well alert, well oriented, not confused, not agitated, not in acute distress, well cooperated during the physical. HEENT: Conjunctive are pink, sclerae clear, no icterus, pupil is equal in both sides, reactive to light, no ear discharge, no pharyngeal erythema or an edema, mouth and lips are dry. Neck: Supple, no JVD, no lymphadenopathy and thyromegaly. Lungs:Equal air entry on both lungs, no additional sounds Heart: S1-S2 regular sinus rhythm and, regular rate, no gallops, no rubs, no murmurs Abdomen: Visible midline surgical scar heal well with a primary union, No visible peristalsis, Bowel sounds present on auscultation, soft, nontender, no guarding, no rigidity, no bilateral CVA tenderness Extremities: No obvious deformities, no pitting edema bilaterally, capillary refill intact, able to wiggle toes both sides, peripheral pulsations are intact on both sides CODING FILE CLERK: No focal neurological deficits, no motor and sensory weakness in all 4 extremities, could move all 4 extremities Musculoskeletal: No joint swelling, deformities, inflammations, and no scoliosis and back tenderness Skin: No active skin lesions and rashes Laboratory Tests Test 10/13/24 19:05 10/13/24 19:24 10/14/24 02:20 10/14/24 05:16 Urine Specimen Description Cln catch midstream Urine Color Red Urine Clarity Bloody Urine pH Urine Specific [place] Urine Protein mg/dl Urine Glucose (UA) mg/dl Urine Ketones mg/dl Urine Occult Blood Urine Nitrite Urine Bilirubin Urine Urobilinogen E.U/dL Urine Leukocyte Esterase Urine RBC Tntc /HPF Urine WBC 10-20 /HPF Urine Squamous Epithelial Cells Few /LPF Urine Bacteria None seen /HPF Urine Culture Indicated Indicated Volume Urine Centrifuged 10 ml Urine HCG, Qualitative Negative Urine Comment See note White Blood Count 17.2 X10'3 9.7 X10'3 Red Blood Count 4.63 X10'6 4.24 X10'6 Hemoglobin 13.5 g/dl 12.4 g/dl Hematocrit 39.9 % 36.5 % Mean Corpuscular Volume 86.0 FL 86.1 FL Mean Corpuscular Hemoglobin 29.2 PG 29.3 PG Mean Corpuscular Hemoglobin Concent 33.9 g/dL 34.0 g/dL Red Cell Distribution Width 14.9 % 14.8 % Platelet Count 245 X10'3 230 X10'3 Mean Platelet Volume 8.5 FL 9.1 FL Neutrophils (%) (Auto) 82.5 % 74.8 % Lymphocytes (%) (Auto) 12.4 % 18.4 % Monocytes (%) (Auto) 4.3 % 5.6 % Eosinophils (%) (Auto) 0.5 % 0.8 % Basophils (%) (Auto) 0.3 % 0.4 % Neutrophils # (Auto) 14.2 X10'3 7.2 X10'3 Lymphocytes # (Auto) 2.1 X10'3 1.8 X10'3 Monocytes # (Auto) 0.7 X10'3 0.5 X10'3 Eosinophils # (Auto) 0.1 X10'3 0.1 X10'3 Basophils # (Auto) 0.1 X10'3 0.0 X10'3 CBC Comment Sodium Level 139 MMOL/L 136 MMOL/L Potassium Level 3.7 MMOL/L 3.4 MMOL/L Chloride Level 102 MMOL/L 103 MMOL/L Carbon Dioxide Level 24.5 MMOL/L 22.1 MMOL/L Anion Gap 13 11 Blood Urea Nitrogen 23 MG/DL 16 MG/DL Creatinine 1.24 MG/DL 1.01 MG/DL Estimated GFR/1.73 m2 43 ML/MIN 55 ML/MIN BUN/Creatinine Ratio 18.5 15.8 Glucose Level 287 MG/DL 239 MG/DL Calcium Level 9.0 MG/DL 8.3 MG/DL Total Bilirubin 0.4 MG/DL 0.5 MG/DL Aspartate Amino Transf (AST/SGOT) 26 U/L 26 U/L Alanine Aminotransferase (ALT/SGPT) 34 U/L 29 U/L Alkaline Phosphatase 98 IU/L 78 IU/L Total Protein 8.9 G/DL 7.8 G/DL Albumin 4.1 G/DL 3.5 G/DL Globulin 4.8 G/DL 4.3 G/DL Albumin/Globulin Ratio 0.9 0.8 Lipase 47 U/L Chemistry Comments Lactic Acid Level 1.7 MMOL/L Erythrocyte Sedimentation Rate 23 MM/HR Hemoglobin A1c 8.4 % Magnesium Level 1.9 MG/DL C-Reactive Protein 0.57 MG/DL Procalcitonin < 0.05 NG/ML Test 10/14/24 07:12 10/14/24 12:19 10/14/24 17:35 10/14/24 19:40 Glucometer 215 mg/dl 305 mg/dl 299 mg/dl Urine Specimen Description Urinal Urine Color Red Urine Clarity Cloudy Urine pH Urine Specific [place] Urine Protein mg/dl Urine Glucose (UA) mg/dl Urine Ketones mg/dl Urine Occult Blood Urine Nitrite Urine Bilirubin Urine Urobilinogen E.U/dL Urine Leukocyte Esterase Urine RBC Tntc /HPF Urine WBC 5-10 /HPF Urine Squamous Epithelial Cells Few /LPF Urine Bacteria None seen /HPF Volume Urine Centrifuged 10 ml Urine Comment Test 10/14/24 21:28 10/14/24 23:45 10/15/24 00:16 10/15/24 02:23 Glucometer 423 mg/dl 403 mg/dl 398 mg/dl 348 mg/dl Test 10/15/24 04:53 10/15/24 05:52 10/15/24 08:34 10/15/24 11:39 White Blood Count 10.2 X10'3 Red Blood Count 4.13 X10'6 Hemoglobin 12.1 g/dl Hematocrit 35.5 % Mean Corpuscular Volume 86.1 FL Mean Corpuscular Hemoglobin 29.2 PG Mean Corpuscular Hemoglobin Concent 34.0 g/dL Red Cell Distribution Width 15.0 % Platelet Count 228 X10'3 Mean Platelet Volume 8.7 FL Neutrophils (%) (Auto) 71.0 % Lymphocytes (%) (Auto) 22.1 % Monocytes (%) (Auto) 6.1 % Eosinophils (%) (Auto) 0.3 % Basophils (%) (Auto) 0.5 % Neutrophils # (Auto) 7.3 X10'3 Lymphocytes # (Auto) 2.3 X10'3 Monocytes # (Auto) 0.6 X10'3 Eosinophils # (Auto) 0.0 X10'3 Basophils # (Auto) 0.0 X10'3 CBC Comment Sodium Level 138 MMOL/L Potassium Level 4.2 MMOL/L Chloride Level 106 MMOL/L Carbon Dioxide Level 21.5 MMOL/L Anion Gap 11 Blood Urea Nitrogen 28 MG/DL Creatinine 1.26 MG/DL Estimated GFR/1.73 m2 43 ML/MIN BUN/Creatinine Ratio 22.2 Glucose Level 261 MG/DL Osmolality 299 MOSM/K Calcium Level 9.1 MG/DL Magnesium Level 2.1 MG/DL Total Bilirubin 0.3 MG/DL Aspartate Amino Transf (AST/SGOT) 21 U/L Alanine Aminotransferase (ALT/SGPT) 28 U/L Alkaline Phosphatase 82 IU/L Pro-B-Type Natriuretic Peptide 9254 PG/ML Total Protein 7.4 G/DL Albumin 3.3 G/DL Globulin 4.1 G/DL Albumin/Globulin Ratio 0.8 Triglycerides Level 164 MG/DL Cholesterol Level 191 MG/DL LDL Cholesterol 123 MG/DL HDL Cholesterol 40 MG/DL Cholesterol/HDL Ratio 4.8 Chemistry Comments Glucometer 209 mg/dl 292 mg/dl 220 mg/dl Advise on discharge: - please follow up with Oncology at [facility] for further management. 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, so please follow up with the [facility] Oncology as soon as possible for further evaluation and management - continue antibiotics for urinary tract infection as prescribed - hydrate regularly - follow up with PCP in 1 week with a repeat labs and urinalysis - call 911/go to the nearby ED if any emergencies *Problems/Diagnosis: (1) Hematuria Status: Acute (2) Acute urinary tract infection Status: Acute Total Time Spent on D/C: > 30 Minutes Date of Service: Oct 15, 2024 Billing Provider: CHAUNCEY MORSE MD Common Visit Codes: 34965-PYI/OBS DISCH DAY >30min AGUILA FIERRO, RES Oct 15, 2024 15:26 CHAUNCEY MORSE MD Oct 16, 2024 07:50
== END 2024-10-15 14:50 | disposition home health service (06) | DRG 871 ==
LOC: ER 18:40 → ED HOLD 22:58 → EDBEDREQ 10-14 00:05 → ORTHO 4S 10-14 00:50
PROVIDERS: ADMIT Internal Medicine Critical Care Medicine; ATTEND Internal Medicine
PROC: BW211ZZ Computerized Tomography (CT Scan) of Abdomen and Pelvis using Low Osmolar Contrast (ICD-10-PCS; principal; 2024-10-13)
DX: A41.9 Sepsis, unspecified organism (principal); N17.0 Acute kidney failure with tubular necrosis; N13.6 Pyonephrosis; E83.51 Hypocalcemia; E11.65 Type 2 diabetes mellitus with hyperglycemia; I10 Essential (primary) hypertension; E87.6 Hypokalemia; R31.0 Gross hematuria; Z90.710 Acquired absence of both cervix and uterus
CPT/HCPCS: 36415; 71045; 74176; 80053; 80061; 81001; 81025; 82948; 83036; 83605; 83690; 83735; 83880; 83930; 84145; 85025; 85651; 86140; 87040; 87081; 87088; 93005; 97161; 97530; 99285; G0378; J0360; J0696; J1644; J1815; J2405; J3490; J7030

== ENCOUNTER 2025-01-09 17:54 | Inpatient (IN) | payer MEDICARE, MEDICAID ==
[~2025-01-09] VITALS: Ht 162.6 cm; Wt 65.0 kg
[~2025-01-09 17:54] MED LIST: ASPI-1071 PO; ATOR-429 PO; DAPA10TA PO; ERGO500056 PO; FLUO-167 PO; INSU100V49 SQ; LACT1CAP26 PO; LANTUS SQ; METO25TA6 PO; MULT-1085 PO; NITR0.4T51 SL; OLAN7.5T50 PO; TAMO20TA4 PO
--- NOTE | 2025-01-09 18:17 | Physician Documentation ---
History of Present Illness ~ Chief Complaint: Hyperglycemia Stated Complaint: HYPOGLYCEMIA Time Seen by MD: 18:10 Primary Medical Doctor: DR. ANNA Mode of Arrival: EMS HPI Patient presents to the emergency room with chief complaint of hyperglycemia. She reports that she was at a potluck after hoahaoism today and had some additional foods. She denies any fever cough cold congestion symptoms abdominal pain or dysuria. Medication Reconciliation Allergies: Coded Allergies: No Known Allergies (Unverified , 12/12/24) Scheduled Aspirin (Ecotrin*), 1 TAB PO DAILY Atorvastatin Calcium* (Lipitor*), 1 TABLET PO HS Dapagliflozin Propanediol (Farxiga), 1 TAB PO QAM, (Reported) Ergocalciferol (Vitamin D2) (Vitamin D2), 1 CAP PO Q7D, (Reported) Fluoxetine HCl (Fluoxetine HCl), 1 CAP PO DAILY, (Reported) Insulin Glargine,Hum.rec.anlog* (Lantus*), 30 UNIT SQ HS Lactobacillus Rhamnosus (Culturelle), 1 CAP PO DAILY Metoprolol Tartrate (Metoprolol Tartrate), 1 TAB PO Q12H, (Reported) Multivitamin (Multi Vitamin Daily), 1 TAB PO DAILY, (Reported) Olanzapine (Olanzapine), 1 TAB PO HS, (Reported) Tamoxifen Citrate (Tamoxifen Citrate), 1 TAB PO DAILY, (Reported) Scheduled PRN Nitroglycerin SL* (Nitrostat SL*), 1 TAB SL Q5MIN PRN for Chest pain Q5min PRNx3-call MD Miscellaneous Medications Insulin Lispro (Insulin Lispro), UNITS SQ, (Reported) Past Medical History Alcohol Use: None Drug Use: none Lives with: Other Lives In: Home Occupation: retired Review of Systems ROS All review of systems negative except as per HPI Physical Exam Vital Signs: Temperature: 97.5, Source: Oral, Heart Rate: 94, Respiratory Rate: 16, BP: 203/116, Pulse Oximetry: 95, Weight: 65.000 Oxygen Flow Rate: 0 Physical Exam General: Patient is awake, alert, oriented x4 in no acute distress Head: Normocephalic and atraumatic. Eyes: Conjunctival normal. EOMI. PERRL. ENT: Mucous membranes moist. Neck: Supple, trachea is midline. Chest: Clear to auscultation bilaterally without rales, rhonchi, or wheezes. There is no accessory muscle use or retractions. Cardiac: RRR without murmurs, gallops, or rubs. Abd: Soft, nondistended, nontender, with normoactive bowel sounds. No guarding, rebound, or rigidity. Progress Results/Orders Results/Orders Orders - BIJU BASS MD Chest,Single View (01/09/25 18:25) Page Hospitalist (01/09/25 21:) Fill Out Med Reconciliation (01/09/25 21:) Cbc/Diff (01/09/25 21:) Heparin 25,000 Unit/250ml Bag (Heparin 2 (01/09/25 21:05) Heparin 10,000 Unit/Ml 1ml (Heparin 10,0 (01/09/25 21:05) Cbc/Diff (01/10/25 03:00) Cbc/Diff (01/11/25 03:00) Cbc/Diff (01/12/25 03:00) Cbc/Diff (01/13/25 03:00) Cbc/Diff (01/14/25 03:00) Completed Orders - BIJU BASS MD Cbc/Diff (01/09/25 18:12) BMP (01/09/25 18:12) Normal Saline 1000ml (0.9% Sodium Chlori (01/09/25 18:15) Procalcitonin (01/09/25 18:12) Hs Troponin I W Calculations (01/09/25 18:14) Chest,Single View (01/09/25 18:25) PBNP (01/09/25 18:09) Ua W/Microscopic, Cult If Ind (01/09/25 18:32) Insulin Regular, Human (Humulin R 10 Uni (01/09/25 18:45) Normal Saline 1000ml (0.9% Sodium Chlori (01/09/25 18:45) Hs Troponin I W Calculations (01/09/25 19:25) Hydralazine Inj. (Apresoline Inj.) (01/09/25 19:40) Pt Inr (01/09/25 21:01) PTT (01/09/25 21:01) Furosemide 40mg Inj (Lasix Inj) (01/09/25 21:10) Heparin 10,000 Unit/Ml 1ml (Heparin 10,0 (01/09/25 21:20) Heparin 10,000 Unit/Ml 1ml (Heparin 10,0 (01/09/25 21:20) Electrocardiogram (01/09/25 21:23) Message To Nursing (01/09/25 21:25) Medications Received in ER Medications (Trade) Dose Ordered Sig/Murali Route PRN Reason Start Time Stop Time Status Last Admin Dose Admin Sodium Chloride 1,000 ml @ 1,000 mls/hr ONCE ONCE IV 01/09/25 18:15 01/09/25 19:14 DC 01/09/25 18:56 1,000 MLS/HR (HumuLIN R 10 units per 0.1 ML syringe) 10 units ONCE ONCE IV 01/09/25 18:45 01/09/25 18:46 DC 01/09/25 18:57 10 UNITS Sodium Chloride 1,000 ml @ 1,000 mls/hr ONCE ONCE IV 01/09/25 18:45 01/09/25 19:44 DC 01/09/25 18:56 1,000 MLS/HR (Apresoline inj.) 10 mg ONCE ONCE IV 01/09/25 19:40 01/09/25 19:41 DC 01/09/25 19:45 10 MG Heparin Sodium/ Dextrose 250 ml @ 8 mls/hr [id number] PRN IV TO MAINTAIN PTT WITHIN RANGE 01/09/25 21:05 01/09/25 21:33 8 MLS/HR (Lasix inj) 40 mg ONCE ONCE IV 01/09/25 21:10 01/09/25 21:11 DC 01/09/25 21:40 40 MG (heparin 10,000 unit/ml 1ml inj) 3,900 units ONCE ONCE IV 01/09/25 21:20 01/09/25 21:21 DC 01/09/25 21:32 3,900 UNITS Vital Signs 01/09/25 01/09/25 01/09/25 01/09/25 17:58 18:13 18:17 19:45 Temp 97.5 Pulse 94 98 102 Resp 16 16 16 B/P (MAP) 203/116 203/121 (148) Pulse Ox 95 95 O2 Flow Rate 0 1.0 Laboratory Tests Test 01/09/25 18:06 01/09/25 18:09 01/09/25 18:32 01/09/25 19:43 Glucometer 412 *H White Blood Count 13.7 H Red Blood Count 4.66 Hemoglobin 12.8 Hematocrit 38.6 Mean Corpuscular Volume 82.9 Mean Corpuscular Hemoglobin 27.5 Mean Corpuscular Hemoglobin Concent 33.2 Red Cell Distribution Width 14.9 H Platelet Count 222 Mean Platelet Volume 9.4 Neutrophils (%) (Auto) 83.8 H Lymphocytes (%) (Auto) 12.0 L Monocytes (%) (Auto) 3.2 Eosinophils (%) (Auto) 0.3 Basophils (%) (Auto) 0.7 Neutrophils # (Auto) 11.5 H Lymphocytes # (Auto) 1.6 Monocytes # (Auto) 0.4 Eosinophils # (Auto) 0.0 Basophils # (Auto) 0.1 CBC Comment Prothrombin Time 10.6 INR International Normalized Ratio 1.0 Activated Partial Thromboplast Time 25 Coagulation Comments Sodium Level 139 Potassium Level 4.4 Chloride Level 106 Carbon Dioxide Level 18.6 L Anion Gap 14 Blood Urea Nitrogen 32 H Creatinine 1.64 H Estimated GFR/1.73 m2 31 BUN/Creatinine Ratio 19.5 Glucose Level 421 *H Calcium Level 8.7 Troponin I High Sensitivity 154 *H 567 *H Pro-B-Type Natriuretic Peptide 1201 H Albumin 3.7 Procalcitonin < 0.05 Chemistry Comments Urine Specimen Description Cln catch midstream Urine Color Yellow Urine Clarity Clear Urine pH 5.5 Urine Specific [place] 1.020 Urine Protein 100 H Urine Glucose (UA) >=1000 H Urine Ketones Negative Urine Occult Blood Small Urine Nitrite Negative Urine Bilirubin Negative Urine Urobilinogen 0.2 Urine Leukocyte Esterase Negative Urine RBC 20-50 Urine WBC 0-4 Urine Squamous Epithelial Cells Few Urine Bacteria Few Urine Culture Indicated Not ind Volume Urine Centrifuged 10 ml Urine Comment Troponin I High Sens Percent Delta 268 Troponin I Hi Sens Absolute Change 413 Test 01/09/25 20:03 Glucometer 314 H EKG/XRAY/CT/US/VASC/MRI EKG : Additional Comment EKG interpreted by myself shows time of 03/08/2028, rate 108, sinus tachycardia, normal axis, mild diffuse ST-T depression. Medical Decision Making Additional information obtaine: old records Findings Patient presents to the emergency room for evaluation of hyperglycemia. Differentials include but are not limited to infectious process, diabetic ketoacidosis, hyperosmotic state, medication noncompliance therefore emergent labs ordered. Patient is not in DKA. While attempting to treat patient's hyperglycemia patient has developed heart failure. Lasix initiated. Sugars improved. Up going troponins and given patient's recent history of diffuse disease heparin initiated. No ST-elevation. She denies chest pain. Differential Dx:Considerations: Include: Appendicitis, Bowel obstruction, Cholecysitis, Dehydration, Diabetes, Diabetic coma, DKA, Electrolyte abnormality, Encephalopathy, Gastritis, Hepatitis, Hyperglycemia, Hyperosmolar state, Hypoglycemia, Pancreatitis, Pyelonephritis, UTI, Other Departure Disposition: HOME / SELF CARE / HOMELESS Impression: Primary Impression: Hyperglycemia Additional Impression: CHF exacerbation Condition: Guarded Referrals: NO PRIMARY CARE PROVIDER (PCP) Signature Scribe Signature: No scribe Attestation: The note accurately reflects work and decisions made by me.Biju Bass MD 01/09/25 21:47 BIJU BASS MD Jan 09, 2025 18:17
[2025-01-09 18:24] LABS: MEAN PLATELET VOLUME 9.4 FL (7.4-10.4); RED CELL DISTRIBUTION WIDTH 14.9 % (11.5-14.5)
[2025-01-09 18:30] LABS: CREATININE 1.64 MG/DL (0.40-0.90); TOTAL CARBON DIOXIDE 18.6 MMOL/L (24-32); eCRCL 30 ML/MIN; eGFR 31 ML/MIN
[2025-01-09 18:40] LABS: LEUKOCYTE ESTERASE ,URINE NEGATIVE (Neg); NITRITES, URINE NEGATIVE (Neg); OCCULT BLOOD,URINE SMALL (Neg)
[2025-01-09 18:41] LABS: UA COLLECTION TYPE CLN CATCH MIDSTREAM
[2025-01-09 18:52] LABS: SQUAMOUS EPITHELIAL CELL,UR FEW /LPF (FEW)
[2025-01-09 18:55] LABS: PRO BRAIN NATRIURETIC PEPTIDE 1201 PG/ML (0-125)
[2025-01-09] MEDS: normal saline 1000ml 1,000 ML IV ONE ×2 (18:56)
[2025-01-09] MEDS: insulin regular, human 10 units/0.1 ml syringe IV ONE (18:57)
--- NOTE | 2025-01-09 19:31 | RADIOLOGY REPORT ---
CHEST RADIOGRAPH Indication: cough Technique: Single frontal view of the chest was obtained COMPARISON: DI CHEST,SINGLE VIEW on DOS: 12/11/24, DI CHEST,SINGLE VIEW on DOS: 10/14/24 FINDINGS: Lines and Tubes: None Lungs: Patchy bilateral perihilar opacities. Pleura: No effusion. No pneumothorax. Cardiomediastinal contours: Unremarkable Bones: Unremarkable IMPRESSION: Patchy bilateral perihilar opacities may represent edema or pneumonia
[2025-01-09] MEDS: hydrALAZINE 20mg/ml inj. IV ONE (19:45)
[2025-01-09] MEDS ORDERED: heparin 10,000 units/1 ML INJ IV ONE ×2 (21:05→21:20)
[2025-01-09] MEDS ORDERED: furosemide 10 MG/1 ML 10ml inj IV ONE (21:10)
[2025-01-09 21:18] LABS: APTT 25 SECONDS (22-32); INR 1.0 INR
[2025-01-09] MEDS: MESSAGE TO NURSING IV ONE (21:25)
[2025-01-09] MEDS: heparin 10,000 units/1 ML INJ IV ONE (21:32)
--- NOTE | 2025-01-09 21:32 | ELECTROCARDIOGRAPH REPORT ---
[facility] Test Date: 2025-01-09 Test Time: 21:29:23 Pat Name: CHICO THOMAS Department: [facility]-ER Patient ID: [facility]-[id number] Room: ED 16 Gender: F [employer] Supervisor: : 1960 Requested By: OFELIA NANCE Order Number: [id number] Reading MD: Dr. Dereck Nickerson Measurements Intervals [place] Rate: 108 P: 101 CO: 170 QRS: 37 QRSD: 92 T: 190 QT: 364 QTc: 488 Interpretive Statements Sinus tachycardia Repol abnrm, severe global ischemia (LM/MVD) Baseline wander in lead(s) V2 Electronically Signed On 01-10-2025 6:59:[address] Dereck Nickerson Please click the below link to view image of tracing.
[2025-01-09] MEDS: heparin 25,000 UNIT/250ml bag 250 ML IV PRN (21:33)
[2025-01-09] MEDS ORDERED: potassium Cl 20 mEq SR tablet PO PRN (22:00)
[2025-01-09] MEDS ORDERED: magnesium sulf-water 2g/50mL 50 ML IV PRN (22:00)
[2025-01-09] MEDS ORDERED: magnesium hydroxide 30ml (MOM) UD suspension PO PRN (22:00)
[2025-01-09] MEDS ORDERED: HYDROcodone/acetaminophen 10/325mg tab PO PRN (22:00)
[2025-01-09] MEDS ORDERED: magnesium Cl slow-release 64mg tablet PO PRN (22:00)
[2025-01-09] MEDS ORDERED: mag hydrox/Alum hydrox/simeth 30ml oral suspension PO PRN (22:00)
[2025-01-09] MEDS ORDERED: HYDROcodone/acetaminophen 5mg/325mg tablet PO PRN (22:00)
[2025-01-09] MEDS ORDERED: magnesium sulf-water 4G/100mL 100 ML IV PRN (22:00)
[2025-01-09 22:07] LABS: MEAN PLATELET VOLUME 9.5 FL (7.4-10.4); RED CELL DISTRIBUTION WIDTH 14.8 % (11.5-14.5)
--- NOTE | 2025-01-09 22:16 | HISTORY AND PHYSICAL-Residence ---
History & Physical Providers to CC Resident Creating Document: ETHAN HERNANDEZ, RES ~ History of Present Illness Primary Medical Doctor: DR. ANNA Reason for Admit\Complaint: Hyperglycemia History of Present Illness This is a 64-year-old female , patient is extremely hard of hearing, was not able to provide history, so most of the history is taken from the previous medical records. She is a female with a history of type 2 diabetes mellitus, hypertension, hyperlipidemia, colon cancer, lung cancer treated with chemotherapy and surgery, unknown psychiatric condition was brought to the ER for hyperglycemia. Blood glucose was 421. She takes 30 units of Lantus b.i.d., no change in her dosage, said she is compliant with her insulin. Her graphic illustrator is Raine([phone]) She denied any complaints of chest pain, difficulty in breathing, palpitations, lightheadedness, leg swellings. Course in the ER-troponins elevated, 154,567 . Patient has been initiated on heparin drip. The patient had a Lexiscan stress test done during her last visit that was positive for reversible ischemia at the apex, anterior wall, inferior wall, lateral wall due to which was consulted and the patient underwent angiography and left heart catheterization CT surgery was consulted for possible bypass, but patient was not a good candidate for surgery. Allergies: Coded Allergies: No Known Allergies (Unverified , 12/12/24) Home Medications Home Medications Active Nitrostat SL* (Nitroglycerin) 0.4 Mg Tablet 1 Tab SL Q5MIN PRN Take 1 tablet sublingually for chest pain may repeat x 2 every 5 minutes Ecotrin* (Aspirin) 81 Mg Tablet.dr 1 Tab PO DAILY 90 Days Lantus* (Insulin Glargine) 100 Unit/1 Ml Vial 30 Unit SQ HS 30 Days Lipitor* (Atorvastatin Calcium) 80 Mg Tablet 1 Tablet PO HS 90 Days Culturelle (Lactobacillus Rhamnosus) 10 Billion Cell Capsule 1 Cap PO DAILY 30 Days Reported Tamoxifen Citrate 20 Mg Tablet 1 Tab PO DAILY Metoprolol Tartrate 25 Mg Tablet 1 Tab PO Q12H Multi Vitamin Daily (Multivitamin) 1 Each Tablet 1 Tab PO DAILY Vitamin D2 (Ergocalciferol (Vitamin D2)) 1,250 Mcg (41032 Unit) Capsule 1 Cap PO Q7D Olanzapine 7.5 Mg Tablet 1 Tab PO HS Fluoxetine HCl 20 Mg Capsule 1 Cap PO DAILY Farxiga (Dapagliflozin Propanediol) 10 Mg Tablet 1 Tab PO QAM Insulin Lispro 100 Unit/Ml Vial Units SQ Past Medical History Past Medical History Hypertension Insulin-dependent Type 2 diabetes mellitus Hyperlipidemia Colon cancer, lung cancer treated with surgery and chemotherapy. Follows with an oncologist at [facility] every six months. Past Surgical History Surgical History Comment Hysterectomy Past Social History Social History Comment Denies any history of smoking, alcohol use, drug use Smoking: Non-Smoker Alcohol Use: None Drug Use: None Lives with: Other Lives In: Home Occupation: retired ROS ROS Constitutional: Denies: no symptoms reported, Eyes: Denies: no symptoms reported ENT: Denies: no symptoms reported Respiratory: Denies: no symptoms reporteD Cardiovascular: Denies: no symptoms reported Gastrointestinal: Denies: no symptoms reported Genitourinary: Denies: no symptoms reported Female Genitalia: Denies: no reported symptoms Neurological: Denies: no symptoms reported Musculoskeletal: Denies: no symptoms reported Endocrine: Denies: no symptoms reported Exam Vitals: Vital Signs Date Time Temp Pulse Resp B/P (MAP) Pulse Ox O2 Delivery O2 Flow Rate FiO2 01/09/25 19:45 102 01/09/25 18:17 16 203/121 (148) 95 1.0 01/09/25 17:58 97.5 General: General: Awake, alert, oriented HEENT: Conjunctive are pink, sclerae clear, no icterus, Neck: Supple, no JVD, no lymphadenopathy and thyromegaly. Chest: Equal air entry on both lungs, no added sounds, no wheeze. Cardiovascular: S1-S2 regular sinus rhythm and, regular rate, no gallops, no rubs, no murmurs Abdomen: soft, nontender, no guarding, no rigidity Extremities: No edema, no cyanosis, peripheral pulsations intact Central Nervous System: No focal neurological deficits Musculoskeletal: No joint swelling, deformities, inflammations, and no scoliosis and back tenderness Skin: Warm and dry. Diagnostic Data Last Recorded Lab Results: 01/11/25 0641 01/11/251948 Diagnostic Data: Laboratory Tests Test 01/09/25 18:09 Prothrombin Time 10.6 SECONDS (9.0-12.0) INR International Normalized Ratio 1.0 INR Activated Partial Thromboplast Time 25 SECONDS (22-32) Coagulation Comments Advance Care Planning Advanced Care plannin - 30 Minutes (FULL CODE) Additional Plan NSTEMI LILIBETH score 5 Patient is currently asymptomatic Risk factor-type 2 diabetes, hypertension, hyperlipidemia, unknown family history Troponins elevated, 154, 567, 8085 EKG shows sinus tachycardia with no acute ST elevations, depressions ProBNP 1201 Echo done on12/12 shows LVEF of 40%. Echo ordered please follow-up Aspirin 325 mg atorvastatin 80 mg, metoprolol succinate 25 mg given Followed by aspirin 81 mg, Plavix 75 mg, atorvastatin 40 mg. Heparin drip initiated Telemetry monitoring The patient had a Lexiscan stress test done during her last visit that was positive for reversible ischemia at the apex, anterior wall, inferior wall, lateral wall due to which was consulted and the patient underwent angiography and left heart catheterization that showed findings notable for multivessel CAD. CT surgery was consulted for possible bypass who recommended against CABG as patient is a poor surgical candidate Consult Cardiology in the a.m. Uncontrolled type 2 diabetes mellitus Blood glucose on admission, 421 Started on Lantus 30 units, 6 units with meals, medium dose protocol MALIK likely secondary to vasomotor nephropathy Creatinine 1.64, BUN-32 Baseline creatiine is 1.01 in 10/11 Strict I&O Hypertension Blood pressure 203/116 patient given metoprolol succinate 25 mg. Start medications once med rec is done. Hyperlipidemia Started on atorvastatin 40 mg daily Code status: Full code DVT profile: Heparin Diet: Carb controlled diet Disposition: Continue to monitor troponins, blood sugar levels . Patient will be admitted to PCU with telemetry monitoring. Consult Cardiology in the a.m. Ethan Hernandez PGY-1 Date of Service: Jan 09, 2025 Billing Provider: HÉCTOR JUNG MD Addendum Attestation I agree with the residents assessment and plan as below: 64 year old with hearing difficulty and developmental disability admitted with hyperglycemia and elevated troponin. Plan: cardiology consult heparin infusion asa and plavix metoprolol and statin formal echo restart lantus CCT 52 min using HIPPA compliant A/V technology ETHAN HERNANDEZ, RES Jan 09, 2025 22:16 HÉCTOR JUNG MD Jan 11, 2025 22:07
[2025-01-09] MEDS ORDERED: DEXTROSE 15 GM of carb/4 tabs (each vial/BOTTLE has 4 tablets) PO PRN ×2 (22:45)
[2025-01-09] MEDS ORDERED: dextrose 50%-water 50ml dispensing syringe IV PRN ×2 (22:45)
[2025-01-09] MEDS ORDERED: glucagon, human recombinant 1mg kit SUBCUT PRN (22:45)
[2025-01-10] VITALS (9 sets, daily range): BP systolic 99–171; BP diastolic 61–96; PULSE 75–113; RESP 14–22; TEMP 97.3–98.3; O2SAT 96–100
[2025-01-10] MEDS: metoprolol succinate 25mg (24-HOUR) SR. Tablet PO ONE (01:05)
[2025-01-10 02:14] LABS: MEAN PLATELET VOLUME 9.1 FL (7.4-10.4); RED CELL DISTRIBUTION WIDTH 14.9 % (11.5-14.5)
[2025-01-10 04:23] LABS: CHOL/HDL RATIO 3.2 (0.00-4.99); CREATININE 1.24 MG/DL (0.40-0.90); LDL CHOLESTEROL 91 MG/DL (50-100); TOTAL CARBON DIOXIDE 15.2 MMOL/L (24-32); eCRCL 39 ML/MIN; eGFR 43 ML/MIN
[2025-01-10] MEDS: heparin 10,000 units/1 ML INJ IV PRN (04:37)
[2025-01-10] MEDS: MESSAGE TO NURSING IV ONE ×2 (04:46→12:25)
[2025-01-10] MEDS ORDERED: potassium Cl 40MEQ/1/2NS 520ml 520 ML IV PRN (08:00)
[2025-01-10] MEDS ORDERED: potassium Cl 40MEQ/270ML bag 270 ML IV PRN (08:00)
[2025-01-10] MEDS: ringers solution, lacted 1,000 ML IV SCH ×2 (08:00)
[2025-01-10] MEDS ORDERED: sodium phos 15mmol/D5 255mL 255 ML IV PRN (08:00)
[2025-01-10] MEDS: K and/or MAG REPLACEMENT MC SCH (08:00)
[2025-01-10] MEDS ORDERED: magnesium sulf-water 2g/50mL 50 ML IV PRN (08:00)
[2025-01-10] MEDS ORDERED: Insulin Reg/NS 100units/100mL 100 ML IV SCH (08:00)
[2025-01-10] MEDS ORDERED: INSULIN LISPRO 100 UNIT/ML INSULN.PEN MULTI-DOSE SQ SCH (09:00)
[2025-01-10] MEDS: INSULIN LISPRO 100 UNIT/ML INSULN.PEN MULTI-DOSE SQ SCH (09:26)
[2025-01-10] MEDS: aspirin 81mg, enteric-coated 1 TAB TABLET.DR PO SCH (09:30)
[2025-01-10] MEDS: docusate sod 100mg capsule PO SCH (09:30)
[2025-01-10 09:44] LABS: CREATININE 1.05 MG/DL (0.40-0.90); PHOSPHORUS 3.4 MG/DL (2.3-4.5); TOTAL CARBON DIOXIDE 20.5 MMOL/L (24-32); eCRCL 46 ML/MIN; eGFR 53 ML/MIN
[2025-01-10] MEDS: potassium Cl 20 mEq SR tablet PO PRN (10:03)
[2025-01-10 10:49] LABS: ABG BASE EXCESS -3.8 mmol/L (-2.0-3.0); ABG HCO3 18.8 mmol/L (21.0-28.0); ABG OXYGEN SATURATION 99.1 % (94.0-98.0); ABG PCO2 (T) 28.1 mmHg (32.0-45.0); ABG PH (T) 7.445 (7.350-7.450); ABG PO2 (T) 149.4 mmHg (83.0-108.0); ALLEN'S TEST POSITIVE; FCOHb 1.0 % (0.5-1.5); FHHb 0.9 % (0.0-5.0); FIO2 32.0 mmHg/%; FLOW 3 L/min; FMetHb 0.3 % (0.0-1.5); FO2Hb 97.8 % (94.0-98.0); MODE NASAL CANNULA; PATIENT TEMPERATURE 37.5; TOTAL HEMOGLOBIN 12.4 G/dl (12.0-16.0)
--- NOTE | 2025-01-10 16:31 | PROGRESS NOTE- Residence ---
Progress Note - Resident Providers to CC Resident Creating Document: DANIEL MCKENZIE, RES CC: CHAUNCEY MORSE MD ~ Antibiotic Timeout Antibiotic Ordered?: No Subjective Patient is seen and examined at bedside. All the patient has development delay in the background, patient seemed to be cognitively intact in making decisions. She is willing to go forward with the CABG surgery. I was able to talk to the caregiver who is also the POA Ms. Ni who gave in the following information: Patient has brothers and sisters but they have never been contacted at all. Patient does not have conservatorship. Per the caregiver, patient is not able to make her own decisions, can not managed with diet or medications. She has been managed for developmental delay by [facility] who has been sent to maintain homes and lives with MRSA. Patient is known to sneak food and had about a big bowl of chosen hold cream last night which caused the elevation in her blood pressure. Dr. POLO has told MRSA in the last admission that she is not going to be treated due to her noncompliance. Per the caregiver, she behaves like a 9-year-old. The caregiver makes decisions for her and is agreeable to proceeding with CABG surgery. Dr. Waldron who is the on-call CT surgeon has been consulted-he is willing to evaluate the patient but has not promised to move forward with surgery. Objective Vital Signs Date Time Temp Pulse Resp B/P (MAP) Pulse Ox O2 Delivery O2 Flow Rate FiO2 01/10/25 11:00 98.3 82 21 113/61 (78) 97 Nasal Cannula 2.0 Result Diagram: 01/10/25 0202 01/10/25 0904 General: Alert, awake, oriented, not in acute distress HEENT: PERRLA, no icterus, pallor, lymphadenopathy, carotid bruit Respiratory system: Bilateral vesicular breath sounds heard, no adventitious breath sounds CVS: S1-S2 heard, no murmurs/rubs/gallop GI: Soft, nontender, no organomegaly, no guarding/rigidity, bowel sounds present Neuro: No focal neurological deficits present Extremities: No edema cyanosis clubbing/deformities Skin: Warm and dry Coagulation Studies Laboratory Tests Test 01/09/25 18:09 01/10/25 10:49 Prothrombin Time 10.6 SECONDS (9.0-12.0) INR International Normalized Ratio 1.0 INR Activated Partial Thromboplast Time 25 SECONDS (22-32) APTT (Heparin Protocol) 49 SECONDS (45-60) Coagulation Comments Assessment Assessment A 64-year-old female with PMH of HTN and HLD and previous cardiac catheterization revealing diffuse multivessel stenosis presented to the ED in view of elevated blood sugars. Patient is initially admitted for hyperglycemia but on further monitoring and evaluation patient was found to have acidosis and being managed for diabetic ketoacidosis. During the course of evaluation patient was found to have elevated troponins indicating NSTEMI. Patient was initially started on heparin drip but has been discontinued to Lovenox in view of heparin being infused in dextrose that could not be changed and affecting the blood sugars. Patient is being admitted for the evaluation management of DKA and diffuse CAD. Plan Plan NSTEMI Diffuse vessel CAD Evaluation for CABG Prior left heart catheterization: Multivessel CAD from the previous admission in November, CABG deferred with possible noncompliance postop in view of developmental delay On-call CT surgeon consulted, awaiting recommendations Hold Plavix, transitioning IV heparin drip to Lovenox 70 mg subcutaneous b.i.d. Continue aspirin 81 mg, atorvastatin 80 mg Continue to monitor telemetry GDM T: Metoprolol tartrate 25 mg Diabetic ketoacidosis 2/2 hyperglycemic diet Uncontrolled type 2 DM Hypokalemia A1c: 7.7, anion gap: 18, bicarb: 15.2 On DKA protocol Continue to monitor blood sugars Switch to subcutaneous insulin once the patient's starts to eat and anion gap closes-Lantus 15 units, high-dose sliding scale On Potassium replacement protocol Acute exacerbation of HFrEF, EF: 40% Echo from November,: EF: 40% IV Lasix 20 mg b.i.d. GDM T: Farxiga 10 mg, metoprolol 25 mg, Aldactone 25 mg once daily Strict Is&Os Prerenal MALIK probably secondary to renal tubular stasis Creatinine improving Continue to monitor BMP Developmental delay Anxiety/depression Continue olanzapine 7.5 mg, fluoxetine 20 mg once daily HTN Seems to be well-controlled Continue to monitor vitals HLD LDL: 91 LDL goal: Less than 60 Atorvastatin 80 mg once daily Code status: Full code Diet: Heart healthy DVT prophylaxis: Lovenox Disposition: Continue care in PCU, awaiting CT surgeon recommendations Daniel Mckenzie MD Internal Medicine, PGY 2 Date of Service: Jan 10, 2025 Billing Provider: CHAUNCEY MORSE MD Common Visit Codes: [id number] INP/OBS CARE(HIGH) DANIEL MCKENZIE, RES Jan 10, 2025 16:30 CHAUNCEY MORSE MD Jan 11, 2025 06:39
[2025-01-10] MEDS ORDERED: enoxaparin 100mg/ml syringe SUBCUT SCH ×2 (18:00→20:00)
--- NOTE | 2025-01-10 19:33 | ELECTROCARDIOGRAPH REPORT ---
[facility] Test Date: 2025-01-10 Test Time: 19:30:27 Pat Name: CHICO THOMAS Department: [facility] 3S Patient ID: [id number] Room: [place] [address] A Gender: F Astrobiologist: : 1960 Requested By: ETHAN HERNANDEZ Order Number: [id number] Reading MD: Dr. Elvin Barnhart Measurements Intervals [place] Rate: 121 P: 79 MI: 158 QRS: 26 QRSD: 93 T: 203 QT: 327 QTc: 464 Interpretive Statements Sinus tachycardia LVH with secondary repolarization abnormality ST depr, consider ischemia, inferior-lateral leads Electronically Signed On 01-12-2025 13:20:[address] Elvin Barnhart Please click the below link to view image of tracing.
[2025-01-10] MEDS: hydrALAZINE 20mg/ml inj. IV ONE (20:21)
[2025-01-10] MEDS: enoxaparin 30mg/0.3ml syringe SUBCUT SCH (20:24)
[2025-01-10] MEDS: enoxaparin 40mg/0.4ml syringe SUBCUT SCH (20:25)
[2025-01-10] MEDS ORDERED: insulin glargine (Lantus) pen - multi-dose SQ SCH (21:00)
[2025-01-10 23:17] LABS: CREATININE 1.51 MG/DL (0.40-0.90); TOTAL CARBON DIOXIDE 18.8 MMOL/L (24-32); eCRCL 32 ML/MIN; eGFR 35 ML/MIN
[2025-01-11] VITALS (9 sets, daily range): BP systolic 99–163; BP diastolic 64–97; PULSE 95–132; RESP 17–24; TEMP 96.8–98; O2SAT 87–100
[2025-01-11] MEDS: insulin regular, human 10 units/0.1 ml syringe IV ONE (02:33)
[2025-01-11 03:14] LABS: ABG BASE EXCESS -10.1 mmol/L (-2.0-3.0); ABG HCO3 12.9 mmol/L (21.0-28.0); ABG OXYGEN SATURATION 98.7 % (94.0-98.0); ABG PCO2 (T) 21.8 mmHg (32.0-45.0); ABG PH (T) 7.388 (7.350-7.450); ABG PO2 (T) 132.9 mmHg (83.0-108.0); ALLEN'S TEST POSITIVE; FCOHb 0.8 % (0.5-1.5); FHHb 1.3 % (0.0-5.0); FIO2 21.0 mmHg/%; FMetHb 0.3 % (0.0-1.5); FO2Hb 97.6 % (94.0-98.0); MODE ROOM AIR; PATIENT TEMPERATURE 36.5; TOTAL HEMOGLOBIN 13.0 G/dl (12.0-16.0)
[2025-01-11] MEDS: INSULIN LISPRO 100 UNIT/ML INSULN.PEN MULTI-DOSE SQ ONE (05:49)
[2025-01-11] MEDS: INSULIN LISPRO 100 UNIT/ML INSULN.PEN MULTI-DOSE SQ SCH (07:05)
[2025-01-11 07:09] LABS: MEAN PLATELET VOLUME 9.5 FL (7.4-10.4); RED CELL DISTRIBUTION WIDTH 15.5 % (11.5-14.5)
[2025-01-11 07:31] LABS: CREATININE 1.57 MG/DL (0.40-0.90); TOTAL CARBON DIOXIDE 15.8 MMOL/L (24-32); eCRCL 31 ML/MIN; eGFR 33 ML/MIN
[2025-01-11] MEDS: multivitamins, therapeutics tablet PO SCH (07:31)
[2025-01-11] MEDS: EMPAGLIFLOZIN 25 MG TABLET PO SCH (07:32)
[2025-01-11] MEDS ORDERED: potassium Cl 40MEQ/270ML bag 270 ML IV PRN (07:40)
[2025-01-11] MEDS ORDERED: Insulin Reg/NS 100units/100mL 100 ML IV SCH (07:40)
[2025-01-11] MEDS ORDERED: potassium Cl 40MEQ/1/2NS 520ml 520 ML IV PRN (07:40)
[2025-01-11] MEDS ORDERED: dextrose 50%-water 50ml dispensing syringe IV PRN (07:40)
[2025-01-11] MEDS ORDERED: sodium phos 15mmol/D5 255mL 255 ML IV PRN (07:40)
[2025-01-11] MEDS: ringers solution, lacted 1,000 ML IV SCH ×2 (07:40→08:16)
[2025-01-11] MEDS: sodium phosphate inj. 30 MMOL in dextrose 5%-water 250 ML IV ONE (08:02)
[2025-01-11 08:26] LABS: PHOSPHORUS 3.7 MG/DL (2.3-4.5)
[2025-01-11] MEDS: Insulin Reg/NS 100units/100mL 100 ML IV SCH (09:03)
[2025-01-11 12:21] LABS: CREATININE 1.44 MG/DL (0.40-0.90); PHOSPHORUS 2.9 MG/DL (2.3-4.5); TOTAL CARBON DIOXIDE 19.1 MMOL/L (24-32); eCRCL 34 ML/MIN; eGFR 37 ML/MIN
[2025-01-11] MEDS: insulin glargine (Lantus) pen - multi-dose SQ ONE (14:09)
[2025-01-11 16:44] LABS: CREATININE 1.15 MG/DL (0.40-0.90); TOTAL CARBON DIOXIDE 18.8 MMOL/L (24-32); eCRCL 42 ML/MIN; eGFR 47 ML/MIN
[2025-01-11] MEDS: ondansetron/PF 4mg/2ml inj IV PRN (18:18)
--- NOTE | 2025-01-11 18:56 | PROGRESS NOTE- Residence ---
Progress Note - Resident Providers to CC Resident Creating Document: DANIEL MCKENZIE RES CC: CHAUNCEY MORSE MD ~ Antibiotic Timeout Antibiotic Ordered?: No Subjective Patient was seen and examined at bedside. Patient had increased blood glucose and anion gap reopened requiring to manage her on DKA protocol once again. Today in the patient's room, a vendor from [facility] along with the patient's caregivers were present in the room. Information was made cleared with the patient does not have a conservator and is able to make her own decisions. Patient was as if we were able to discuss her health information with the caregivers and the vendor. Patient agreed to it. Patient's current medical condition has been clearly discussed in the room. Dr. Waldron, the CT surgeon refused to pursue with CABG surgery at this time. We will be talking to Dr. POLO about the possibility of surgery and possible transfer to [place] per the patient's preference. Patient was able to have only 50% of her meals when it was initiated around noon with a blood sugars dropped down to 214. Objective Vital Signs Date Time Temp Pulse Resp B/P (MAP) Pulse Ox O2 Delivery O2 Flow Rate FiO2 01/11/25 15:00 98.0 121 17 112/64 (80) 100 Room Air 01/10/25 22:00 2.0 Result Diagram: 01/11/25 0641 01/11/25 1547 General: Alert, awake, oriented, not in acute distress HEENT: PERRLA, no icterus, pallor, lymphadenopathy, carotid bruit Respiratory system: Bilateral vesicular breath sounds heard, no adventitious breath sounds CVS: S1-S2 heard, no murmurs/rubs/gallop GI: Soft, nontender, no organomegaly, no guarding/rigidity, bowel sounds present Neuro: No focal neurological deficits present Extremities: No edema cyanosis clubbing/deformities Skin: Warm and dry Coagulation Studies Laboratory Tests Test 01/09/25 18:09 01/10/25 10:49 Prothrombin Time 10.6 SECONDS (9.0-12.0) INR International Normalized Ratio 1.0 INR Activated Partial Thromboplast Time 25 SECONDS (22-32) APTT (Heparin Protocol) 49 SECONDS (45-60) Coagulation Comments Assessment Assessment A 64-year-old female with PMH of HTN and HLD and previous cardiac catheterization revealing diffuse multivessel stenosis presented to the ED in view of elevated blood sugars. Patient is initially admitted for hyperglycemia but on further monitoring and evaluation patient was found to have acidosis and being managed for diabetic ketoacidosis. During the course of evaluation patient was found to have elevated troponins indicating NSTEMI. Patient was initially started on heparin drip but has been discontinued to Lovenox in view of heparin being infused in dextrose that could not be changed and affecting the blood sugars. Patient is being admitted for the evaluation management of DKA and diffuse CAD. Plan Plan NSTEMI Diffuse vessel CAD Evaluation for CABG Prior left heart catheterization: Multivessel CAD from the previous admission in November, CABG deferred with possible noncompliance postop in view of developmental delay On-call CT surgeon does not prefer to do surgery at this time, we will be discussing with Dr. POLO about possible transfer and considerations for surgery to [place] Hold Plavix, continue Lovenox 70 mg subcutaneous b.i.d. Continue aspirin 81 mg, atorvastatin 80 mg Continue to monitor telemetry GDM T: Metoprolol tartrate 25 mg Diabetic ketoacidosis 2/2 hyperglycemic diet, resolved Uncontrolled type 2 DM Hypokalemia A1c: 7.7, anion gap: 21 > 15 > 12 On DKA protocol -insulin drip can be discontinued with the patient is able to have 100% of her meals. Continue IV LR. Patient received 35 units of Lantus in the afternoon. Continue to monitor blood sugars q.2h, CMP q.4h Switch to subcutaneous insulin once the patient's starts to eat 100% - high-dose sliding scale insulin On Potassium replacement protocol Acute exacerbation of HFrEF, EF: 40% Echo from November,: EF: 40% Titrate Lasix as required. We will continue diuresis the patient of the patient is completely out of DKA. GDM T: Farxiga 10 mg, metoprolol 25 mg, Aldactone 25 mg once daily Strict Is&Os Prerenal MALIK probably secondary to renal tubular stasis Creatinine improving Continue to monitor BMP Developmental delay Anxiety/depression Continue olanzapine 7.5 mg, fluoxetine 20 mg once daily HTN Seems to be well-controlled Seems to have a bit of high blood pressure readings in the range of 160s last night, but was able to control it to normal range in the morning Continue to monitor vitals HLD LDL: 91 LDL goal: Less than 60 Atorvastatin 80 mg once daily Code status: Full code Diet: Heart healthy DVT prophylaxis: Lovenox Disposition: Continue care in PCU, awaiting a decision to be made about transfer of the patient for CABG surgery Daniel Mckenzie MD Internal Medicine, PGY 2 Date of Service: Jan 11, 2025 Billing Provider: CHAUNCEY MORSE MD Common Visit Codes: [id number] INP/OBS CARE(HIGH) DANIEL MCKENZIE, RES Jan 11, 2025 18:56 CHAUNCEY MORSE MD Jan 12, 2025 06:56
[2025-01-11 19:34] LABS: PHOSPHORUS 2.5 MG/DL (2.3-4.5)
[2025-01-11] MEDS: potassium Cl 40MEQ/1/2NS 520ml 520 ML IV PRN (20:20)
[2025-01-11] MEDS: magnesium sulf-water 2g/50mL 50 ML IV PRN (20:21)
[2025-01-11] MEDS ORDERED: insulin glargine (Lantus) pen - multi-dose SQ SCH (21:00)
[2025-01-11] MEDS: insulin glargine (Lantus) pen - multi-dose SQ SCH (21:00)
[2025-01-11 21:01] LABS: CREATININE 1.17 MG/DL (0.40-0.90); PHOSPHORUS 2.5 MG/DL (2.3-4.5); TOTAL CARBON DIOXIDE 20.8 MMOL/L (24-32); eCRCL 41 ML/MIN; eGFR 46 ML/MIN
[2025-01-12] VITALS (7 sets, daily range): BP systolic 95–115; BP diastolic 62–77; PULSE 87–103; RESP 14–30; TEMP 97.2–97.7; O2SAT 94–98
[2025-01-12] MEDS: INSULIN LISPRO 100 UNIT/ML INSULN.PEN MULTI-DOSE SQ SCH ×2 (00:17→04:40)
[2025-01-12 00:24] LABS: CREATININE 1.07 MG/DL (0.40-0.90); PHOSPHORUS 2.8 MG/DL (2.3-4.5); TOTAL CARBON DIOXIDE 22.0 MMOL/L (24-32); eCRCL 45 ML/MIN; eGFR 51 ML/MIN
[2025-01-12] MEDS: INSULIN LISPRO 100 UNIT/ML INSULN.PEN MULTI-DOSE SQ ONE ×4 (02:54→18:37)
[2025-01-12 04:28] LABS: MEAN PLATELET VOLUME 9.2 FL (7.4-10.4); RED CELL DISTRIBUTION WIDTH 15.3 % (11.5-14.5)
[2025-01-12 04:41] LABS: CREATININE 1.29 MG/DL (0.40-0.90); PHOSPHORUS 3.2 MG/DL (2.3-4.5); TOTAL CARBON DIOXIDE 22.8 MMOL/L (24-32); eCRCL 38 ML/MIN; eGFR 41 ML/MIN
[2025-01-12 09:27] LABS: CREATININE 1.27 MG/DL (0.40-0.90); PHOSPHORUS 3.6 MG/DL (2.3-4.5); TOTAL CARBON DIOXIDE 24.5 MMOL/L (24-32); eCRCL 38 ML/MIN; eGFR 42 ML/MIN
--- NOTE | 2025-01-12 10:32 | PROGRESS NOTE ---
Progress Note CV Providers to CC ~ Progress Note: A 64-year-old female with PMH of HTN and HLD and previous cardiac catheterization revealing diffuse multivessel stenosis presented to the ED in view of elevated blood sugars. Patient is initially admitted for hyperglycemia but on further monitoring and evaluation patient was found to have acidosis and being managed for diabetic ketoacidosis. During the course of evaluation patient was found to have elevated troponins indicating NSTEMI. Patient had presented as well back in November, at which time cardiac cath was performed and showed severe multivessel disease with significant LV dysfunction - EF 25-30%. She was seen by Dr. Villarreal at that time and she was turned down for surgical revascularization. We have now been asked once again to evaluate her for candidacy for CABG. Consult was received by Dr. Taurus Waldron. Dr. Waldron (in my presence) reviewed the studies and evaluated the patient originally on 01/10/2025, however, due to computer access problems he has been unable to document that visit. Antibiotics Ordered?: No Objective Vitals Vital Signs Date Time Temp Pulse Resp B/P (MAP) Pulse Ox O2 Delivery O2 Flow Rate FiO2 01/12/25 09:02 110 01/12/25 06:00 97.5 14 115/76 (89) 97 Room Air 01/10/25 22:00 2.0 Lab Results: 01/12/25 0410 01/12/25 0849 Coagulation Studies Laboratory Tests Test 01/09/25 18:09 01/10/25 10:49 Prothrombin Time 10.6 SECONDS (9.0-12.0) INR International Normalized Ratio 1.0 INR Activated Partial Thromboplast Time 25 SECONDS (22-32) APTT (Heparin Protocol) 49 SECONDS (45-60) Coagulation Comments Cardiac Rhythm: Sinus Rhythm, Sinus Tachycardia Problem\Assessment\Plan Problems/Diagnosis: (1) NSTEMI (non-ST elevated myocardial infarction) Status: Acute Assessment & Plan: Patient was evaluated by Dr. Taurus Waldron, Cardiac Surgeon on 01/10/2025. It is the opinion of Dr. Waldron that this patient is not a candidate for CABG due to the fact that she has absolutely no suitable coronary targets in the left coronary distribution and only a very small potential target in the right coronary distribution, which alone does not warrant surgical intervention when weighing the significant risk versus any possible benefit - especially in the light of her poor EF. We recommend ongoing medical therapy. Will discuss with Dr. Camara whether there are any options for PCI to the right coronary. HOWARD CARBAJAL Jan 12, 2025 10:32
[2025-01-12 12:08] LABS: CREATININE 1.18 MG/DL (0.40-0.90); PHOSPHORUS 3.9 MG/DL (2.3-4.5); TOTAL CARBON DIOXIDE 22.6 MMOL/L (24-32); eCRCL 41 ML/MIN; eGFR 46 ML/MIN
--- NOTE | 2025-01-12 12:20 | PROGRESS NOTE ---
Progress Note CV Providers to CC ~ Progress Note: Patient unfortunately does not have suitable targets. The LAD is atretic and is 100% occluded as are its Diagonal branches. The OM-1 branch barely fills retrograde and is a ghost vessel. The distal OM terminates into a tiny branch which would represent poor runoff. The only vessel that potentially can be approached is the distal RCA. An aopinion from Cardiology may be in order. Central Line/PICC still needed: No Martin Indications Met/Not Met: F/C Indications Not Met Antibiotics Ordered?: No MRSA Education MRSA Education Provided: No Objective Vitals Vital Signs Date Time Temp Pulse Resp B/P (MAP) Pulse Ox O2 Delivery O2 Flow Rate FiO2 01/12/25 09:02 110 01/12/25 06:00 97.5 14 115/76 (89) 97 Room Air 01/10/25 22:00 2.0 Lab Results: 01/12/25 0410 01/12/25 1134 Coagulation Studies Laboratory Tests Test 01/09/25 18:09 01/10/25 10:49 Prothrombin Time 10.6 SECONDS (9.0-12.0) INR International Normalized Ratio 1.0 INR Activated Partial Thromboplast Time 25 SECONDS (22-32) APTT (Heparin Protocol) 49 SECONDS (45-60) Coagulation Comments Cardiac Rhythm: Sinus Rhythm, Sinus Tachycardia Problem\Assessment\Plan Additional Plan Surgery declined by Dr. Villarreal on last admission and by me this admission. Potential approach of the RCA interventionally BECKIE CONDE MD Jan 12, 2025 12:20
[2025-01-12] MEDS ORDERED: LOSA50TA64 PO (12:26)
[2025-01-12] MEDS ORDERED: NITR0.4T51 SL (12:26)
[2025-01-12] MEDS ORDERED: EMPA25TA PO (12:26)
[2025-01-12] MEDS ORDERED: CLOP-32 PO (12:26)
[2025-01-12] MEDS ORDERED: LANTUS SQ ×2 (12:26→18:07)
[2025-01-12] MEDS ORDERED: FURO-150 PO (12:28)
[2025-01-12 16:18] LABS: CREATININE 1.27 MG/DL (0.40-0.90); PHOSPHORUS 4.0 MG/DL (2.3-4.5); TOTAL CARBON DIOXIDE 22.4 MMOL/L (24-32); eCRCL 38 ML/MIN; eGFR 42 ML/MIN
--- NOTE | 2025-01-12 17:46 | DISCHARGE SUMMARY-Residence ---
Discharge Summary Providers to CC Resident Creating Document: JONATHANUMESHBRANDON RAMOS, RES CC: CHAUNCEY MORSE MD ~ Discharge Summary Admission Diagnosis: HYPERGLYCEMIA Hospital Course DATE OF ADMISSION: 01/09/25 DATE OF DISCHARGE: 01/12/25 Discharge Diagnosis\Comment: NSTEMI with diffuse vessel CAD Diabetic ketoacidosis secondary to hyperglycemic diet, resolved Uncontrolled type 2 DM Acute exacerbation of heart failure with reduced ejection fraction Prerenal MALIK probably secondary to renal tubular stasis Developmental delay Anxiety/depression HTN HLD Operations\Procedures: None Consultants: Dr. Waldron (CT surgeon) Complications: None Condition on DC: Stable New Medications: Clopidogrel Bisulfate (Plavix) 75 Mg Tablet 1 TAB PO DAILY for 30 Days, #30 TAB 0 Refills Furosemide (Lasix) 20 Mg Tablet 20 MG PO BID for 30 Days, #60 TAB Empagliflozin (Jardiance) 25 Mg Tablet 25 MG PO QAM for 30 Days, #30 TAB Insulin Glargine,Hum.rec.anlog* (Lantus*) 100 Unit/1 Ml Vial 35 UNIT SQ BID for 30 Days, #1 VIAL Losartan Potassium (Losartan Potassium) 50 Mg Tablet 50 MG PO DAILY for 30 Days, #30 TAB Nitroglycerin SL* (Nitrostat SL*) 0.4 Mg Tablet 0.4 MG SL Q5MIN PRN for chest pain for 10 Days, #30 TAB Continued Medications: Aspirin (Ecotrin*) 81 Mg Tablet.dr 1 TAB PO DAILY for 90 Days, #90 TAB.SR Atorvastatin Calcium* (Lipitor*) 80 Mg Tablet 1 TABLET PO HS for 90 Days, #90 TABLET Ergocalciferol (Vitamin D2) (Vitamin D2) 1,250 Mcg (60307 Unit) Capsule 1 CAP PO Q7D Fluoxetine HCl (Fluoxetine HCl) 20 Mg Capsule 1 CAP PO DAILY Insulin Lispro (Insulin Lispro) 100 Unit/Ml Vial UNITS SQ Metoprolol Tartrate (Metoprolol Tartrate) 25 Mg Tablet 1 TAB PO Q12H, TAB 0 Refills Multivitamin (Multi Vitamin Daily) 1 Each Tablet 1 TAB PO DAILY, TAB 0 Refills Olanzapine (Olanzapine) 7.5 Mg Tablet 1 TAB PO HS Tamoxifen Citrate (Tamoxifen Citrate) 20 Mg Tablet 1 TAB PO DAILY, TAB 0 Refills Discontinued Medications: Dapagliflozin Propanediol (Farxiga) 10 Mg Tablet 1 TAB PO QAM Insulin Glargine,Hum.rec.anlog* (Lantus*) 100 Unit/1 Ml Vial 30 UNIT SQ HS for 30 Days, #9 ML Discharge Summary: A 64-year-old female with developmental delay, PMH of HTN and HLD and previous cardiac catheterization revealing diffuse multivessel stenosis presented to the ED in view of elevated blood sugars. At the time of admission patient just had elevated blood sugars but eventually was found to be in acidosis. Patient required to be managed for diabetic ketoacidosis with high anion gap and acidosis. At the time of admission to the ED patient also had elevated troponins that increased up to 8000 requiring to be started on heparin drip. As the heparin drip port contain dextrose and then concerns for DKA heparin drip has been switched to equivalent doses of Lovenox subcutaneous. Patient also had CHF with ejection fraction of 40% requiring cautious fluid management. Weighing risk versus benefit, patient required to be on fluids while meticulously watching for fluid overload. Patient also had prerenal acute kidney injury secondary to renal tubular stasis that were managed with fluids and improved at the time of discharge. On the whole, patient has developmental delay and lives at a home of the caregiver that was assigned to her by the vendors of [facility] that takes care of the patients with developmental delay. Per the vendor, caregiver patient is able to make her own decisions and requested to undergo CABG surgery if it is indicated based on her prior catheterization results. Dr. Villarreal initially had declined surgery in view of not having potential targets for repair, patient was re-evaluated by the on-call CT surgeon, Dr. Waldron who was in congruence with a prior decision. Dr. Camara were done left heart catheterization for the patient was also consulted and has recommended referral to a tertiary care center if the patient is symptomatic as it is a very small vessel. Since other medical conditions were managed as per home meds. Patient was adequately titrated with medications as per her conditions. Patient was hemodynamically stable for discharge. Physical examination at the time of discharge: General: Alert, awake, oriented, not in acute distress HEENT: PERRLA, no icterus, pallor, lymphadenopathy, carotid bruit Respiratory system: Bilateral vesicular breath sounds heard, no adventitious breath sounds CVS: S1-S2 heard, no murmurs/rubs/gallop GI: Soft, nontender, no organomegaly, no guarding/rigidity, bowel sounds present Neuro: No focal neurological deficits present Extremities: No edema cyanosis clubbing/deformities Skin: Warm and dry Labs at discharge: WBC: 13.5, H/H: 12.2/36.8, platelet count: 197 Sodium: 140, potassium: 4.4, BUN: 31, creatinine: 1.27 Imaging: Chest x-ray: Patchy bilateral perihilar opacities may represent edema or pneumonia Discharge medications can be found above patient is discharged home with the following recommendations: Follow up with PCP within 2 weeks of dc. Discuss with your PCP to refer yout o a tertiary care center for for assesment and magressive management of your heart condition. We added an additinal med plavix for your heat, please maintain compliance. We started you on Lasix 20 mg po bid, please daily weights and repeat cmp at 2 weeks. Please check your blood sugars adequately, We increased yr lants to 35 uits, continue taking short acting insulin per protocol like you always were taking at home. Return to ER in iew of suddent onse of chest jackson or palpitations. *Problems/Diagnosis: (1) NSTEMI (non-ST elevated myocardial infarction) Status: Acute (2) DKA, type 2 Total Time Spent on D/C: > 30 Minutes Date of Service: Jan 12, 2025 Billing Provider: CHAUNCEY MORSE MD Common Visit Codes: 66761-ZEJ/OBS DISCH DAY >30min BRANDON SHARMA, RES Jan 12, 2025 17:46 CHAUNCEY MORSE MD Jan 13, 2025 08:02
--- NOTE | 2025-01-12 18:29 | PROGRESS NOTE- Residence ---
Progress Note - Resident Providers to CC ~ Subjective Patient was seen and examined at bedside. Patient had increased blood glucose and anion gap reopened requiring to manage her on DKA protocol once again. Today in the patient's room, a vendor from [facility] along with the patient's caregivers were present in the room. Information was made cleared with the patient does not have a conservator and is able to make her own decisions. Patient was as if we were able to discuss her health information with the caregivers and the vendor. Patient agreed to it. Patient's current medical condition has been clearly discussed in the room. Dr. Waldron, the CT surgeon refused to pursue with CABG surgery at this time. We will be talking to Dr. POLO about the possibility of surgery and possible transfer to [place] per the patient's preference. Patient was able to have only 50% of her meals when it was initiated around noon with a blood sugars dropped down to 214. Objective Vital Signs Date Time Temp Pulse Resp B/P (MAP) Pulse Ox O2 Delivery O2 Flow Rate FiO2 01/12/25 11:00 97.7 87 16 95/62 (73) 94 Room Air 01/12/25 08:00 2.0 Result Diagram: 01/12/25 0410 01/12/25 1550 General: Alert, awake, oriented, not in acute distress HEENT: PERRLA, no icterus, pallor, lymphadenopathy, carotid bruit Respiratory system: Bilateral vesicular breath sounds heard, no adventitious breath sounds CVS: S1-S2 heard, no murmurs/rubs/gallop GI: Soft, nontender, no organomegaly, no guarding/rigidity, bowel sounds present Neuro: No focal neurological deficits present Extremities: No edema cyanosis clubbing/deformities Skin: Warm and dry Coagulation Studies Laboratory Tests Test 01/09/25 18:09 01/10/25 10:49 Prothrombin Time 10.6 SECONDS (9.0-12.0) INR International Normalized Ratio 1.0 INR Activated Partial Thromboplast Time 25 SECONDS (22-32) APTT (Heparin Protocol) 49 SECONDS (45-60) Coagulation Comments Assessment Assessment A 64-year-old female with PMH of HTN and HLD and previous cardiac catheterization revealing diffuse multivessel stenosis presented to the ED in view of elevated blood sugars. Patient is initially admitted for hyperglycemia but on further monitoring and evaluation patient was found to have acidosis and being managed for diabetic ketoacidosis. During the course of evaluation patient was found to have elevated troponins indicating NSTEMI. Patient was initially started on heparin drip but has been discontinued to Lovenox in view of heparin being infused in dextrose that could not be changed and affecting the blood sugars. Patient is being admitted for the evaluation management of DKA and diffuse CAD. Plan Plan NSTEMI Diffuse vessel CAD Evaluation for CABG Prior left heart catheterization: Multivessel CAD from the previous admission in November, CABG deferred with possible noncompliance postop in view of developmental delay On-call CT surgeon does not prefer to do surgery at this time, we will be discussing with Dr. POLO about possible transfer and considerations for surgery to [place] Hold Plavix, continue Lovenox 70 mg subcutaneous b.i.d. Continue aspirin 81 mg, atorvastatin 80 mg Continue to monitor telemetry GDM T: Metoprolol tartrate 25 mg Diabetic ketoacidosis 2/2 hyperglycemic diet, resolved Uncontrolled type 2 DM Hypokalemia A1c: 7.7, anion gap: 21 > 15 > 12 On DKA protocol -insulin drip can be discontinued with the patient is able to have 100% of her meals. Continue IV LR. Patient received 35 units of Lantus in the afternoon. Continue to monitor blood sugars q.2h, CMP q.4h Switch to subcutaneous insulin once the patient's starts to eat 100% - high-dose sliding scale insulin On Potassium replacement protocol Acute exacerbation of HFrEF, EF: 40% Echo from November,: EF: 40% Titrate Lasix as required. We will continue diuresis the patient of the patient is completely out of DKA. GDM T: Farxiga 10 mg, metoprolol 25 mg, Aldactone 25 mg once daily Strict Is&Os Prerenal MALIK probably secondary to renal tubular stasis Creatinine improving Continue to monitor BMP Developmental delay Anxiety/depression Continue olanzapine 7.5 mg, fluoxetine 20 mg once daily HTN Seems to be well-controlled Seems to have a bit of high blood pressure readings in the range of 160s last night, but was able to control it to normal range in the morning Continue to monitor vitals HLD LDL: 91 LDL goal: Less than 60 Atorvastatin 80 mg once daily Code status: Full code Diet: Heart healthy DVT prophylaxis: Lovenox Disposition: Continue care in PCU, awaiting a decision to be made about transfer of the patient for CABG surgery Daniel Sharma MD Internal Medicine, PGY 2 DANIEL SHARMA, RES Jan 12, 2025 18:29
[2025-01-12 20:14] LABS: CREATININE 1.54 MG/DL (0.40-0.90); PHOSPHORUS 4.3 MG/DL (2.3-4.5); TOTAL CARBON DIOXIDE 22.0 MMOL/L (24-32); eCRCL 31 ML/MIN; eGFR 34 ML/MIN
[2025-01-12] MEDS: insulin glargine (Lantus) pen - multi-dose SQ ONE (21:54)
[2025-01-13 00:06] LABS: CREATININE 1.34 MG/DL (0.40-0.90); PHOSPHORUS 4.2 MG/DL (2.3-4.5); TOTAL CARBON DIOXIDE 23.6 MMOL/L (24-32); eCRCL 36 ML/MIN; eGFR 40 ML/MIN
[2025-01-13 02:00] VITALS: BP 107/64; PULSE 103; RESP 16; TEMP 98; O2SAT 95
[2025-01-13] MEDS: dextrose 50%-water 50ml dispensing syringe IV PRN (04:52)
[2025-01-13 06:00] VITALS: BP 111/77; PULSE 83; RESP 17; TEMP 97.1; O2SAT 96
[2025-01-13 06:14] LABS: MEAN PLATELET VOLUME 9.4 FL (7.4-10.4); RED CELL DISTRIBUTION WIDTH 15.7 % (11.5-14.5)
[2025-01-13 06:32] LABS: CREATININE 1.23 MG/DL (0.40-0.90); TOTAL CARBON DIOXIDE 22.4 MMOL/L (24-32); eCRCL 39 ML/MIN; eGFR 44 ML/MIN
[2025-01-13 08:00] VITALS: RESP 17; O2SAT 96
[2025-01-13] MEDS: INSULIN LISPRO 100 UNIT/ML INSULN.PEN MULTI-DOSE SQ SCH (09:50)
[2025-01-13 11:00] VITALS: BP 104/68; PULSE 86; RESP 14; TEMP 97; O2SAT 94
--- NOTE | 2025-01-13 16:29 | PROGRESS NOTE- Residence ---
Progress Note - Resident Providers to CC Resident Creating Document: BRANDON SHARMA, CASSIDY CC: CHAUNCEY MORSE MD ~ Antibiotic Timeout Antibiotic Ordered?: No Subjective Note for 01/12/2025. Patient was cleared for discharge yesterday. But the patient has caregivers refused to take her home as her blood pressure readings were in the low 300s at the time of discharge towards the evening. Therefore we had observed her for a night and discharge her the next day morning. Objective Vital Signs Date Time Temp Pulse Resp B/P (MAP) Pulse Ox O2 Delivery O2 Flow Rate FiO2 01/13/25 11:00 97.0 86 14 104/68 (80) 94 Room Air 01/12/25 08:00 2.0 Result Diagram: 01/13/2552601/13/25526 General: Alert, awake, oriented, not in acute distress HEENT: PERRLA, no icterus, pallor, lymphadenopathy, carotid bruit Respiratory system: Bilateral vesicular breath sounds heard, no adventitious breath sounds CVS: S1-S2 heard, no murmurs/rubs/gallop GI: Soft, nontender, no organomegaly, no guarding/rigidity, bowel sounds present Neuro: No focal neurological deficits present Extremities: No edema cyanosis clubbing/deformities Skin: Warm and dry Coagulation Studies Laboratory Tests Test 01/09/25 18:09 01/10/25 10:49 Prothrombin Time 10.6 SECONDS (9.0-12.0) INR International Normalized Ratio 1.0 INR Activated Partial Thromboplast Time 25 SECONDS (22-32) APTT (Heparin Protocol) 49 SECONDS (45-60) Coagulation Comments Assessment Assessment A 64-year-old female with PMH of HTN and HLD and previous cardiac catheterization revealing diffuse multivessel stenosis presented to the ED in view of elevated blood sugars. Patient is initially admitted for hyperglycemia but on further monitoring and evaluation patient was found to have acidosis and being managed for diabetic ketoacidosis. During the course of evaluation patient was found to have elevated troponins indicating NSTEMI. Patient was initially started on heparin drip but has been discontinued to Lovenox in view of heparin being infused in dextrose that could not be changed and affecting the blood sugars. Patient is being admitted for the evaluation management of DKA and diffuse CAD. Plan Plan NSTEMI Diffuse vessel CAD Evaluation for CABG Prior left heart catheterization: Multivessel CAD from the previous admission in November, CABG deferred with possible noncompliance postop in view of developmental delay On-call CT surgeon does not prefer to do surgery at this time, we will be discussing with Dr. POLO about possible transfer and considerations for surgery to [place] Hold Plavix, continue Lovenox 70 mg subcutaneous b.i.d. Continue aspirin 81 mg, atorvastatin 80 mg Plavix at discharge Continue to monitor telemetry GDM T: Metoprolol tartrate [address] surgeon and the library technology instructor who recommended tertiary referral by primary care for the repair of the smallest portion of RCA which could be repaired and did not have successful targets to repair Diabetic ketoacidosis 2/2 hyperglycemic diet, resolved Uncontrolled type 2 DM Hypokalemia A1c: 7.7, anion gap: 21 > 15 > 12 On DKA protocol -insulin drip can be discontinued with the patient is able to have 100% of her meals. Continue IV LR. Patient received 35 units of Lantus in the afternoon. Continue to monitor blood sugars q.2h, CMP q.4h Switch to subcutaneous insulin once the patient's starts to eat 100% - high-dose sliding scale insulin On Potassium replacement protocol Acute exacerbation of HFrEF, EF: 40% Echo from November,: EF: 40% Titrate Lasix as required. We will continue diuresis the patient of the patient is completely out of DKA. GDM T: Farxiga 10 mg, metoprolol 25 mg, Aldactone 25 mg once daily Strict Is&Os Prerenal MALIK probably secondary to renal tubular stasis Creatinine improving Continue to monitor BMP Developmental delay Anxiety/depression Continue olanzapine 7.5 mg, fluoxetine 20 mg once daily HTN Seems to be well-controlled Seems to have a bit of high blood pressure readings in the range of 160s last night, but was able to control it to normal range in the morning Continue to monitor vitals HLD LDL: 91 LDL goal: Less than 60 Atorvastatin 80 mg once daily Code status: Full code Diet: Heart healthy DVT prophylaxis: Lovenox Disposition: Discharge home in a.m. Brandon Sharma MD Internal Medicine, PGY 2 Date of Service: Jan 12, 2025 Billing Provider: CHAUNCEY MORSE MD Common Visit Codes: [id number] INP/OBS CARE(HIGH) BRANDON SHARMA, RES Jan 13, 2025 16:29 CHAUNCEY MORSE MD Jan 14, 2025 06:54
== END 2025-01-13 10:36 | disposition home or self-care (01) | DRG 280 ==
LOC: ER 17:55 → ED HOLD 21:41 → PCU 3S 01-10 08:10
PROVIDERS: ADMIT Internal Medicine; ATTEND Internal Medicine
DX: I21.4 Non-ST elevation (NSTEMI) myocardial infarction (principal); E11.10 Type 2 diabetes mellitus with ketoacidosis without coma; N17.0 Acute kidney failure with tubular necrosis; I50.23 Acute on chronic systolic (congestive) heart failure; I11.0 Hypertensive heart disease with heart failure; F32.A Depression, unspecified; F41.9 Anxiety disorder, unspecified; E87.6 Hypokalemia; R62.59 Other lack of expected normal physiological development in childhood; I25.10 Atherosclerotic heart disease of native coronary artery without angina pectoris; E78.5 Hyperlipidemia, unspecified; Z79.82 Long term (current) use of aspirin; Z79.4 Long term (current) use of insulin; Z79.899 Other long term (current) drug therapy; Z85.038 Personal history of other malignant neoplasm of large intestine; Z92.21 Personal history of antineoplastic chemotherapy; Z85.118 Personal history of other malignant neoplasm of bronchus and lung
CPT/HCPCS: 36415; 36600; 71045; 80048; 80053; 80061; 81001; 82803; 82948; 83036; 83735; 83880; 84100; 84145; 84484; 85018; 85025; 85610; 85730; 87081; 93005; 96365; 96375; 99285; A4615; G0378; J0360; J1644; J1650; J1815; J1938; J2270; J2405; J2470; J3480; J3490; J7030; J7070; J7120